=== PATIENT | male | born 1955 | race Caucasian/White ===

== ENCOUNTER 2019-11-17 09:11 | Emergency (ER) | payer OTHER ==
[~2019-11-17] VITALS: Ht 175.3 cm; Wt 74.8 kg
[~2019-11-17 09:11] MED LIST: ALBIPROI INH; ALBU90OI INH; AMOCLA875 PO; AMOX500 PO; BENZ100A PO; Bactrim Ds Tab1 EACH PO; CEPH250A PO; CHLO25 PO; CYCL10 PO; DOXY100 PO; FLUSAL5005 INH; FOLTX TABLET1 EACH PO; IBUP600 PO; NAPR550 PO; Percocet 5-3251 EACH PO; QUET200 PO; QUET300 PO; RXAMOX500 PO; RXLORA1 PO; TRIA80TC TOP; Ultram50 MG PO; Ventolin Soln3 ML INH
[2019-11-17 09:58] LABS: BASOPHILS ABSOLUTE AUTO 0.04 K/mm3 (0.00-0.23); BASOPHILS PERCENT AUTO 1 % (0-2); EOSINOPHILS ABSOLUTE AUTO 0.17 K/mm3 (0.00-0.68); EOSINOPHILS PERCENT AUTO 3 % (0-6); Hemoglobin 15.6 g/dL (13.5-17.5); IMMATURE GRAN PERCENT AUTO 0 % (0-1); LYMPHOCYTES ABSOLUTE AUTO 1.66 K/mm3 (0.84-5.20); LYMPHOCYTES PERCENT AUTO 31 % (21-46); MONOCYTES ABSOLUTE AUTO 0.68 K/mm3 (0.16-1.47); MONOCYTES PERCENT AUTO 13 % (4-13); Mean Corpuscular HGB 29.3 pg (26.0-34.0); Mean Corpuscular HGB Conc 33.9 g/dL (31.5-36.5); Mean Corpuscular Volume 86 fL (80-100); Mean Platelet Volume 8.7 fL (9.1-12.4); NEUTROPHILS ABSOLUTE AUTO 2.88 K/mm3 (1.96-9.15); NEUTROPHILS PERCENT AUTO 53 % (41-73); Platelet Count 290 K/mm3 (150-400); RDW Coefficient Variation 13.4 % (11.7-14.2); RDW Standard Deviation 41.9 fL (35.1-46.3); Red Blood Cell Count 5.33 M/mm3 (4.30-5.90); White Blood Cell Count 5.43 K/mm3 (4.00-11.30)
[2019-11-17 10:15] LABS: Alanine Aminotransfer (ALT/SGP 38 U/L (12-78); Albumin, Blood 3.3 g/dL (3.4-5.0); Albumin/Globulin Ratio 0.7 (0.8-1.8); Alk Phos 134 U/L (50-136); Anion Gap 6 mmol/L (6-16); Aspartate Aminotrans (AST/SGOT 50 U/L (12-37); Bilirubin, Total 0.7 mg/dL (0.1-1.0); Blood Urea Nitrogen 3 mg/dL (8-24); Bun/Creatinine Ratio 6.1 (12.0-20.0); CO2, Blood 30 mmol/L (21-32); Calcium, Blood 9.1 mg/dL (8.5-10.1); Chloride, Blood 89 mmol/L (98-108); Creatinine, Blood 0.49 mg/dL (0.60-1.20); Globulin, Blood 4.8 g/dL (2.2-4.0); Glomerular Filtration Rate >60 (60-); Glucose, Blood 91 mg/dL (70-99); Potassium, Blood 4.5 mmol/L (3.5-5.5); Sodium, Blood 125 mmol/L (136-145); Total Protein, Blood 8.1 g/dL (6.4-8.2)
[2019-11-17] MEDS ORDERED: ALBU90OI INH (14:17)
[2019-11-17] MEDS ORDERED: IBUP600 PO (14:17)
[2019-11-17] MEDS ORDERED: Prednisone20 MG PO (14:17)
[2019-11-17] MEDS ORDERED: Amoxicillin875 MG PO (14:17)
== END 2019-11-17 14:45 | disposition home or self-care (01) ==
LOC: ER 09:11
PROVIDERS: Emergency Medicine
DX: J44.1 Chronic obstructive pulmonary disease with (acute) exacerbation (principal); F17.210 Nicotine dependence, cigarettes, uncomplicated; Z88.5 Allergy status to narcotic agent
CPT/HCPCS: 36415; 71046; 80053; 83880; 85025; 93005; 93010; 94640; 99284-25

== ENCOUNTER 2020-01-24 13:22 | Emergency (ER) | payer OTHER ==
[~2020-01-24] VITALS: Ht 175.3 cm; Wt 63.5 kg
[~2020-01-24 13:22] MED LIST changes: +Amoxicillin875 MG PO; +Prednisone20 MG PO
== END 2020-01-24 15:23 | disposition home or self-care (01) ==
LOC: ER 13:22
DX: S02.2XXA Fracture of nasal bones, initial encounter for closed fracture (principal); Z88.5 Allergy status to narcotic agent; M25.559 Pain in unspecified hip; G89.29 Other chronic pain; J43.9 Emphysema, unspecified; F17.210 Nicotine dependence, cigarettes, uncomplicated; Y04.0XXA Assault by unarmed brawl or fight, initial encounter
CPT/HCPCS: 70160; 99284-25

== ENCOUNTER 2020-02-07 14:29 | Inpatient (IN) | payer OTHER ==
[~2020-02-07] VITALS: Ht 175.3 cm; Wt 70.6 kg
[2020-02-07] MEDS ORDERED: NAPROXEN500 MG PO (14:56)
[2020-02-07] MEDS ORDERED: CYCL10 PO (14:56)
[2020-02-07] MEDS ORDERED: PRED20 PO (14:57)
[2020-02-07] MEDS ORDERED: Ventolin/Prove6.7 GM INH (14:57)
[2020-02-07 15:33] LABS: BASOPHILS ABSOLUTE AUTO 0.04 K/mm3 (0.00-0.23); BASOPHILS PERCENT AUTO 0 % (0-2); EOSINOPHILS ABSOLUTE AUTO 0.01 K/mm3 (0.00-0.68); EOSINOPHILS PERCENT AUTO 0 % (0-6); Hematocrit 39.8 % (37.0-53.0); Hemoglobin 14.1 g/dL (13.5-17.5); IMMATURE GRAN PERCENT AUTO 1 % (0-1); LYMPHOCYTES ABSOLUTE AUTO 0.32 K/mm3 (0.84-5.20); LYMPHOCYTES PERCENT AUTO 2 % (21-46); MONOCYTES ABSOLUTE AUTO 0.48 K/mm3 (0.16-1.47); MONOCYTES PERCENT AUTO 2 % (4-13); Mean Corpuscular HGB Conc 35.4 g/dL (31.5-36.5); Mean Corpuscular Volume 85 fL (80-100); Mean Platelet Volume 7.7 fL (9.1-12.4); NEUTROPHILS ABSOLUTE AUTO 21.06 K/mm3 (1.96-9.15); NEUTROPHILS PERCENT AUTO 96 % (41-73); Platelet Count 317 K/mm3 (150-400); RDW Coefficient Variation 12.6 % (11.7-14.2); RDW Standard Deviation 38.8 fL (35.1-46.3); White Blood Cell Count 22.01 K/mm3 (4.00-11.30)
[2020-02-07 15:54] LABS: Alanine Aminotransfer (ALT/SGP 34 U/L (12-78); Albumin, Blood 3.3 g/dL (3.4-5.0); Albumin/Globulin Ratio 0.8 (0.8-1.8); Alk Phos 144 U/L (50-136); Anion Gap 10 mmol/L (6-16); Aspartate Aminotrans (AST/SGOT 51 U/L (12-37); Bilirubin, Total 0.5 mg/dL (0.1-1.0); Blood Urea Nitrogen 7 mg/dL (8-24); Bun/Creatinine Ratio 12.5 (12.0-20.0); CO2, Blood 25 mmol/L (21-32); Calcium, Blood 8.4 mg/dL (8.5-10.1); Chloride, Blood 81 mmol/L (98-108); Creatinine, Blood 0.56 mg/dL (0.60-1.20); Globulin, Blood 4.2 g/dL (2.2-4.0); Glomerular Filtration Rate >60 (60-); Glucose, Blood 72 mg/dL (70-99); Potassium, Blood 4.2 mmol/L (3.5-5.5); Sodium, Blood 116 mmol/L (136-145); Total Protein, Blood 7.5 g/dL (6.4-8.2)
[2020-02-07 16:01] LABS: Prothrombin Time Results 10.7 Sec (9.7-11.5)
[2020-02-07] MEDS ORDERED: CYCLOBENZAPRINE5 MG PO (16:52)
[2020-02-07 17:57] LABS: PCO2 Arterial 39.1 mmHg (35-45); pH Blood Arterial 7.41 (7.35-7.45)
--- NOTE | 2020-02-07 18:11 | NUR ---
RECEIVED REPORT: ROOM READY, REPORT RECEIVED. AWAITING FOR PT TO RECEIVE SECOND IV AND ARIVE FROM ED.
[2020-02-07 18:43] LABS: Influenza A Negative (NEGATIVE); Influenza B Negative (NEGATIVE)
--- NOTE | 2020-02-07 18:59 | NUR ---
PT ARIVED FROM ED AT 1825 WITH A FEVOR OF 100.6. PT STATES HE IS COLD AND WANTS A BLANKET. ATTEMPTED TO EDUCATE PT ON THE NEED TO KEEP HIS TEMP DOWN AND TO AVOID EXTRA BLANKETS AT THIS TIME. PT COMPLIANT, BUT DOES NOT APPEAR TO BE HAPPY WITH THIS. REVIEWED PT ALLERGIES AND MEDICATIONS. PT STATES HE HAS BEEN HOMELESS LIVING ON THE STREETS. PT APPEARS RED WITH PEELING SKIN IN THE FACE AN ABDOMEN STATES HE SLEPT OUT IN THE SUN. PT STATES HE DRINKS APPROX 2-3 BEERS A DAY. WILL REPORT OFF TO ANKUR LUCAS.
[2020-02-07 20:28] LABS: Anion Gap 9 mmol/L (6-16); Blood Urea Nitrogen 7 mg/dL (8-24); CO2, Blood 24 mmol/L (21-32); Calcium, Blood 7.5 mg/dL (8.5-10.1); Chloride, Blood 87 mmol/L (98-108); Creatinine, Blood 0.59 mg/dL (0.60-1.20); Glomerular Filtration Rate >60 (60-); Glucose, Blood 130 mg/dL (70-99); Potassium, Blood 3.3 mmol/L (3.5-5.5); Sodium, Blood 120 mmol/L (136-145)
[2020-02-07 20:38] LABS: Source, Urine Voided
[2020-02-07 20:44] LABS: Bilirubin, Urine Neg (Neg); Blood, Urine Neg (Neg); Glucose Qualitative, Urine Neg (Neg); Ketones, Urine 2+ (Neg); Leukocyte Esterase, Urine 2+ (Neg); Nitrite, Urine Pos (Neg); Protein, Urine Neg (Neg); Specific Gravity, Urine 1.015 (1.003-1.022); Urobilinogen, Urine NORM (Normal)
[2020-02-07 20:50] LABS: Appearance, Urine Hazy (Clear); Bacteria Many /hpf; Color, Urine Yellow (P-Yellow); Red Blood Cells, Urine Not Seen /hpf (0-2); Squamous Epithelial Cells Not Seen /hpf (Few); White Blood Cells, Urine 25-50 /hpf (0-5)
[2020-02-07 20:55] LABS: U Amphetamine Screen DETECTED; U Methamphetamine Screen DETECTED
[2020-02-07 20:56] LABS: U Barbituate Screen Not Detected; U Benzodiazapine Screen Not Detected; U Buprenorphine Screen Not Detected; U Cannabinoids Screen DETECTED; U Cocaine Screen Not Detected; U Methadone Screen Not Detected; U Opiates Screen Not Detected; U Oxycodone Screen Not Detected; U Phencyclidine Screen Not Detected; U Propoxyphene Screen Not Detected
[2020-02-08 00:46] LABS: Anion Gap 10 mmol/L (6-16); Blood Urea Nitrogen 6 mg/dL (8-24); Bun/Creatinine Ratio 9.9 (12.0-20.0); CO2, Blood 25 mmol/L (21-32); Calcium, Blood 8.1 mg/dL (8.5-10.1); Chloride, Blood 89 mmol/L (98-108); Glomerular Filtration Rate >60 (60-); Glucose, Blood 162 mg/dL (70-99); Magnesium, Blood 1.3 mg/dL (1.6-2.4); Phosphorus, Blood 2.8 mg/dL (2.5-4.9); Potassium, Blood 3.8 mmol/L (3.5-5.5); Sodium, Blood 124 mmol/L (136-145)
[2020-02-08 02:59] LABS: Adenovirus F 40/41 Not Detected (NOT DETECT); Astrovirus Not Detected (NOT DETECT); Campylobacter Sp Not Detected (NOT DETECT); Cryptosporidium Not Detected (NOT DETECT); Cyclospora Cayetanensis Not Detected (NOT DETECT); E. Coli O157 Not Detected (NOT DETECT); Entamoeba Histolytica Not Detected (NOT DETECT); Enteroaggregative E. coli-EAEC Not Detected (NOT DETECT); Enteropathogenic E. coli-EPEC Not Detected (NOT DETECT); Enterotoxigenic E. coli-ETEC Not Detected (NOT DETECT); Giardia Lamblia Not Detected (NOT DETECT); Norovirus GI/GII Not Detected (NOT DETECT); Plesiomonas Shigelloides Not Detected (NOT DETECT); Rotavirus A Not Detected (NOT DETECT); Salmonella Sp Not Detected (NOT DETECT); Sapovirus Not Detected (NOT DETECT); Shiga Toxin-prod E. coli-STEC Not Detected (NOT DETECT); Shigella/Enteroin E. coli-EIEC Not Detected (NOT DETECT); Vibrio Cholerae Not Detected (NOT DETECT); Vibrio Sp Not Detected (NOT DETECT); Yersinia Enterocolitica Not Detected (NOT DETECT)
[2020-02-08 04:43] LABS: Alanine Aminotransfer (ALT/SGP 25 U/L (12-78); Albumin, Blood 2.7 g/dL (3.4-5.0); Albumin/Globulin Ratio 0.7 (0.8-1.8); Alk Phos 103 U/L (50-136); Anion Gap 6 mmol/L (6-16); Aspartate Aminotrans (AST/SGOT 34 U/L (12-37); Bilirubin, Total 0.5 mg/dL (0.1-1.0); Blood Urea Nitrogen 5 mg/dL (8-24); Bun/Creatinine Ratio 10.2 (12.0-20.0); CO2, Blood 24 mmol/L (21-32); Calcium, Blood 8.3 mg/dL (8.5-10.1); Chloride, Blood 93 mmol/L (98-108); Creatinine, Blood 0.49 mg/dL (0.60-1.20); Globulin, Blood 3.8 g/dL (2.2-4.0); Glomerular Filtration Rate >60 (60-); Glucose, Blood 181 mg/dL (70-99); Potassium, Blood 4.2 mmol/L (3.5-5.5); Sodium, Blood 123 mmol/L (136-145); Total Protein, Blood 6.5 g/dL (6.4-8.2)
--- NOTE | 2020-02-08 10:48 | NUR ---
CARE ASSUMED ASSESSMENT COMPLETED, PT ALERT AND ORIENTED, APPROPRIATE AND COOPERATIVE, VSS. DR. SANTOYO IN TO SEE PATIENT, STATUS TO MED WITHOUT TELE, CARDIAC MONIOTORING DC'D. SPO2 94% ON RA, PT HAS A COUGH PRODUCTIVE OF BROWN SPUTUM, IS SUCTIONING INDEPENDENTLY WITH YAUNKER. RECTAL TUBE IN PLACE WITH SMALL AMOUNT OF BROWN LIQUID STOOL IN TUBING, PT VOIDING IN URINAL, APPEARS TO HAVE BEEN INCONTINENT ONCE, GOWN AND LINENS CHANGED, PT CLEANED UP. PT NOW SITTING UP FOR BREAKFAST, DENIES NEEDS OR C/O AT THIS TIME. DENIES CHEST PAIN OR SOB.
--- NOTE | 2020-02-08 12:52 | NUR ---
UPDATE PT HAS BEEN NAPPING ON AND OFF, CONTINUES TO DENY SOB AND PAIN, SPO2 >95% ON RA, COUGH UNCHANGED. PT TOLERATING MEALS WELL, VSS, VOIDING WITHOUT DIFFICULTY. NO ADDITIONAL OUTPUT NOTED FROM RECTAL TUBE SINCE AM ASSESSMENT. PT DENIES NEEDS, IS REPOSITIONING SELF IN BED, REMAINS ORIENTED AND APPROPRIATE, COOPERATIVE WITH CARE.
[2020-02-08 15:16] LABS: Anion Gap 7 mmol/L (6-16); Blood Urea Nitrogen 6 mg/dL (8-24); Bun/Creatinine Ratio 11.1 (12.0-20.0); CO2, Blood 24 mmol/L (21-32); Calcium, Blood 8.2 mg/dL (8.5-10.1); Chloride, Blood 96 mmol/L (98-108); Creatinine, Blood 0.54 mg/dL (0.60-1.20); Glomerular Filtration Rate >60 (60-); Glucose, Blood 177 mg/dL (70-99); Potassium, Blood 4.5 mmol/L (3.5-5.5); Sodium, Blood 127 mmol/L (136-145)
--- NOTE | 2020-02-08 17:38 | NUR ---
UPDATE PT NAPPED ON AND OFF THIS AFTERNOON, DENIED C/O, SOB, OR CHEST PAIN T/O SHIFT, TOLERATED MEALS WELL. BEDBATH AND ORAL CARE COMPLETED, PT ABLE TO ASSIST AND TURN SELF IN BED. PT NOT INCONTINENT OF ANY MORE VOIDS THIS SHIFT, HAS BEEN VOIDING IN URINAL WITHOUT DIFFICULTY, NO BM TODAY. PT CONTINUES TO COUGH AND EXPECTORATE BROWN SPUTUM, SPO2 >95% ON RA. ELECTROLYTES RECHECKED THIS AFTERNOON, SODIUM SLOWLY INCREASING, NO NEW ORDERS, WILL CONTINUE NS 75NL/HR AND RECHECK LABS IN AM. SISTER GIVEN UPDATE.
--- NOTE | 2020-02-08 18:31 | NUR ---
END OF SHIFT PT RESTING IN BED, CONTINUES TO DENY C/O, NO CHANGES SINCE LAST NOTE. PT TOLERATED DINNER WELL, IS NOW WATCHING TV AND EATING PUDDING, REMAINS OREINTED, PLEASANT AND COOPERATIVE. WILL CONTINUE TO MONITOR AND REPORT TO ONCOMING SHIFT.
--- NOTE | 2020-02-09 00:43 | NUR ---
02/08 @ 00:40 SPOKE WITH KELSEA HERMAN REGARDING INCREASING HR, BP AT REST. NO NEW ORDERS RECEIVED AT THIS TIME. CONCERN FOR ABILITITY/COMPLACENCY FOR TAKING PRESCRIPTION MEDICATION ONCE OUT OF THE HOSPITAL CONSIDERING CURRENT HOMELESS STATE, COULD POSSIBLY LIVE AT THIS BP OUTSIDE OF HOSPITAL. DID STATE TO PASS ON TO DAY TEAM. ASYMPTOMATIC, NO C/O PAIN, HEADACHE, CIWA = 0.
[2020-02-09 03:38] LABS: Anion Gap 8 mmol/L (6-16); Blood Urea Nitrogen 5 mg/dL (8-24); Bun/Creatinine Ratio 9.9 (12.0-20.0); CO2, Blood 26 mmol/L (21-32); Calcium, Blood 8.6 mg/dL (8.5-10.1); Chloride, Blood 96 mmol/L (98-108); Glomerular Filtration Rate >60 (60-); Glucose, Blood 166 mg/dL (70-99); Potassium, Blood 3.7 mmol/L (3.5-5.5); Sodium, Blood 130 mmol/L (136-145)
--- NOTE | 2020-02-09 05:54 | NUR ---
SHIFT SUMMARY PATIENT SLEPT WELL THROUGH NIGHT. DID HAVE ONE EPISODE RECENTLY WHERE CIWA WAS 17, FIRST TIME I SCORED HIM WITH TREMORS AND BEING DIRORIENTED. UNSURE OF DATE, WHERE HE WAS AT, BASIC QUESTIONS SUCH "WHAT'S 2 + 2, DOES A STONE FLOAT ON WATER," PATIENT WAS UNABLE TO ANSWER. STARTING TO EXPERIENCE MORE SEVERE WITHDRAWL SYMPTOMS. WELL CONTROLLED CURRENTLY WITH 2MG ATIVAN, SEE EMAR. OTHERWISE, NO CHANGES OVERNIGHT. ASSESSMENT IS CHARTED. NO C/O PAIN. VSS. WILL CONTINUE TO MONITOR.
--- NOTE | 2020-02-09 07:55 | NUR ---
ASSESSMENT- PT ASLEEP, AWAKENS EASILY TO NAME. ALERT, ORIENTED TO SELF, PLACE, DISORIENTED TO TIME. ABLE TO FOLLOW DIRECTIONS. LUNGS CLEAR, NO SOB. VSS. CIWA 6. NO N/V. VOIDING USING URINAL. RECTAL TUBE WITH SMALL AMOUNT LIQUID STOOL. NS AT 75 CDC/HR, PIV X 2 INTACT. MEDICAL STATUS, COVID NEGATIVE. SKIN-FACE REDDENED.
--- NOTE | 2020-02-09 09:04 | NUR ---
DR. SANTOYO HERE-UPDATED. PT UP TO CHAIR WITH ASSIST. EATING BREAKFAST, ENCOURAGED TO EAT SLOWLY. STRONG COUGH. CONTINUE TO MONITOR
--- NOTE | 2020-02-09 11:59 | NUR ---
PT HAS BEEN SLEEPING WITH NO COMPLAINTS. AWAKE NOW, ASSIST TO CHAIR WITH WALKER, TOLERATED WELL. EATING LUNCH. REPORT TO LUPE LUCAS.
--- NOTE | 2020-02-09 12:23 | NUR ---
PT ATE 100% LUNCH. RECTAL TUBE D/C. READIED FOR TRANSFER.
--- NOTE | 2020-02-09 17:30 | NUR ---
SUMMARY PT SITTING UP IN BED EATING DINNER, PT TRANSFERRED UP FROM ICU AFTER LUNCH, PT FORGETFUL BUT COOPERATIVE, ABLE TO TAKE HIS PILLS WHOLE AND USES THE URINAL INDEPENDENTLY, PT IS A ONE PERSON ASSIST WITH THE WALKER, PT WITH SLIGHT TREMORS, MED PER EMAR FOR WITHDRAWL, VSS, NO ACUTE CHANGES, WILL CONT TO MONITOR
--- NOTE | 2020-02-10 00:46 | NUR ---
02/10/20 0010 PT AWAKENED FOR MED. DENIED NEED TO URINATE BUT RN DISCOVERED HE WAS INCONTINENT OF LARGE AMOUNT OF URINE. ENTIRE BED LINENS CHANGED. PARTIAL BATH GIVEN. REQUESTED PUDDING AND SODA AND WAS GIVEN PUDDING AND JUICE. TOOK 100% OF SNACK.
--- NOTE | 2020-02-10 03:14 | NUR ---
02/10/20 0315 PT CALLING FREQUENTLY FOR "SNACKS" AND DRINKS. BOTH ITEMS GIVEN AND RN ENCOURAGED PT TO GET SOME SLEEP IT WAS THE MIDDLE OF THE NIGHT. HE SMILED AND SAID ,"NOT YET".
--- NOTE | 2020-02-10 05:37 | NUR ---
02/10/20 0530 PT SLEEPING WELL AFTER ATIVAN WAS GIVEN FOR CIWA OF 11 AT 0325. HE WAS INCREASINGLY AGITATED,ANXIOUS AND SEEING "A WOMAN TURNING ON MY TV." NO ONE HAD BEEN IN HIS ROOM. VITALS STABLE. BED ALARM ON. TAKING ORAL INTAKE WELL, ESPECIALLY SNACKS.
[2020-02-10 06:42] LABS: BASOPHILS ABSOLUTE AUTO 0.02 K/mm3 (0.00-0.23); BASOPHILS PERCENT AUTO 0 % (0-2); EOSINOPHILS ABSOLUTE AUTO 0.01 K/mm3 (0.00-0.68); EOSINOPHILS PERCENT AUTO 0 % (0-6); Hematocrit 33.4 % (37.0-53.0); Hemoglobin 11.3 g/dL (13.5-17.5); IMMATURE GRAN ABSOLUTE AUTO 0.12 K/mm3 (0.00-0.10); IMMATURE GRAN PERCENT AUTO 1 % (0-1); LYMPHOCYTES ABSOLUTE AUTO 1.13 K/mm3 (0.84-5.20); LYMPHOCYTES PERCENT AUTO 5 % (21-46); MONOCYTES PERCENT AUTO 4 % (4-13); Mean Corpuscular HGB 29.6 pg (26.0-34.0); Mean Corpuscular HGB Conc 33.8 g/dL (31.5-36.5); Mean Corpuscular Volume 87 fL (80-100); NEUTROPHILS ABSOLUTE AUTO 20.31 K/mm3 (1.96-9.15); NEUTROPHILS PERCENT AUTO 90 % (41-73); Platelet Count 293 K/mm3 (150-400); RDW Coefficient Variation 13.6 % (11.7-14.2); RDW Standard Deviation 43.7 fL (35.1-46.3); Red Blood Cell Count 3.82 M/mm3 (4.30-5.90); White Blood Cell Count 22.49 K/mm3 (4.00-11.30)
[2020-02-10 08:51] LABS: Anion Gap 4 mmol/L (6-16); Blood Urea Nitrogen 7 mg/dL (8-24); Bun/Creatinine Ratio 12.7 (12.0-20.0); CO2, Blood 32 mmol/L (21-32); Calcium, Blood 8.8 mg/dL (8.5-10.1); Chloride, Blood 95 mmol/L (98-108); Creatinine, Blood 0.55 mg/dL (0.60-1.20); Glomerular Filtration Rate >60 (60-); Glucose, Blood 104 mg/dL (70-99); Potassium, Blood 3.6 mmol/L (3.5-5.5); Sodium, Blood 131 mmol/L (136-145)
--- NOTE | 2020-02-10 17:20 | NUR ---
PT IS A/OX2, PLEASANT AND COOPERATIVE, THE PT TODAY MOSTLY SLEPT, REPORTED THAT HE DID NOT SLEEP WELL LAST NIGHT AT ALL, THE PT HAD 2 LARGE SOFT BMS TODAY AND WAS SHOWERED AFTER, THE PT IS 1 PERSON ASSIST UP USEING THE FWW, STILL REMAINS UNSTEADY ON HIS FEET, THE PT APPEARS TO BE BREATHING EASILY ON RA, THE PT DENIED ANY PAIN TODAY, CALL LIGHT IN REACH, BED ALARM ON, WILL CONTINUE TO MONITOR AND ASSESS FOR CAHANGES
[2020-02-11 05:00] LABS: Anion Gap 2 mmol/L (6-16); Blood Urea Nitrogen 8 mg/dL (8-24); Bun/Creatinine Ratio 12.9 (12.0-20.0); CO2, Blood 34 mmol/L (21-32); Calcium, Blood 8.4 mg/dL (8.5-10.1); Chloride, Blood 96 mmol/L (98-108); Creatinine, Blood 0.62 mg/dL (0.60-1.20); Glomerular Filtration Rate >60 (60-); Glucose, Blood 76 mg/dL (70-99); Potassium, Blood 3.7 mmol/L (3.5-5.5); Sodium, Blood 132 mmol/L (136-145)
--- NOTE | 2020-02-11 05:28 | NUR ---
SHIFT SUMMARY PT HAS RESTED WELL MOST OF THE NIGHT. OCCASIONAL INCONTINENT EPISODES WHILE TRYING TO GET TO THE BATHROOM. HE HAS HAD A FEW LOOSE STOOLS THIS SHIFT. PT IS FORGETFUL, AND SLOW TO RESPOND AT TIMES. DOES NOT USE CALL, AND JUST YELLS OUT WHEN NEEDING STAFFS ASSISTANCE. HOWEVER PT OVERALL HAS BEEN APPROPRIATE WITH STAFF. CIWAS SCORES HAVE BEEN LOW. VITALS STABLE. IVF INFSUING ORDERED. NO ACUTE CHANGES TO REPORT. BED IN LOWEST POSITION, CALL LIGHT WITHIN REACH. WILL CONTINUE TO MONITOR AND REPORT TO ONCOMING RN.
[2020-02-11] MEDS ORDERED: AZIT250 PO (11:10)
[2020-02-11] MEDS ORDERED: LISI20 PO (11:11)
--- NOTE | 2020-02-11 12:40 | NUR ---
PT DISCHARGED PT VERBALIZED UNDERSTANDING OF THE DC INSTRUCTIONS, THE PTS PRESCRIPTIONS WERE FAXED TO JOSEFA SAUER HE REQUESTED, THE PTS PCP OFFICE WAS NOTIFIED FOR FOLLOW UP APPOINTMENT THE WILL CALL THE PT TO SCHEDULE, THE PT APPEARED TO BE BREATHING EASILY ON RA, THE PT WAS TRANSFERED VIA WHEELCHAIR ACCOMPANIED BY THE THREE DIMENSIONAL ART INSTRUCTOR
== END 2020-02-11 12:15 | disposition home or self-care (01) | DRG 871 ==
LOC: ER 14:29 → ICUW 18:03 → ICUE 18:15 → MEDS 02-09 12:24 → ENPENDDIS 02-11 10:16 → MEDS 02-11 12:15
PROVIDERS: Emergency Medicine; Nurse Practitioner Acute Care; ADMIT Hospitalist
DX: A41.9 Sepsis, unspecified organism (principal); J96.01 Acute respiratory failure with hypoxia; J69.0 Pneumonitis due to inhalation of food and vomit; J44.0 Chronic obstructive pulmonary disease with (acute) lower respiratory infection; J44.1 Chronic obstructive pulmonary disease with (acute) exacerbation; E87.1 Hypo-osmolality and hyponatremia; F10.239 Alcohol dependence with withdrawal, unspecified; R65.20 Severe sepsis without septic shock; F03.90 Unspecified dementia, unspecified severity, without behavioral disturbance, psychotic disturbance, mood disturbance, and anxiety; Z59.0 Homelessness; I10 Essential (primary) hypertension; F17.210 Nicotine dependence, cigarettes, uncomplicated
CPT/HCPCS: 0097U; 36415; 36600; 71045; 80048; 80053; 81001; 82728; 82803; 83605; 83615; 83735; 83930; 83935; 84100; 84145; 84300; 85025; 85379; 85610; 85730; 87040; 87070; 87077; 87086; 87186; 87205; 87804; 93005; 93010; 96361; 96365; 96367; 99285-25; A9270; C9113; G0480; J0456; J0696; J1650; J2060; J2930; J3475; J3480; J7030; J7050; U0002

== ENCOUNTER 2020-03-05 08:56 | Emergency (ER) | payer OTHER ==
[~2020-03-05] VITALS: Ht 175.3 cm; Wt 74.8 kg
[~2020-03-05 08:56] MED LIST changes: +AZIT250 PO; +CYCLOBENZAPRINE5 MG PO; +LISI20 PO; +NAPROXEN500 MG PO; +PRED20 PO; +Ventolin/Prove6.7 GM INH
== END 2020-03-05 11:42 | disposition home or self-care (01) ==
LOC: ER 08:56
DX: H72.92 Unspecified perforation of tympanic membrane, left ear (principal); R05 Cough; J44.9 Chronic obstructive pulmonary disease, unspecified; D50.9 Iron deficiency anemia, unspecified; F17.210 Nicotine dependence, cigarettes, uncomplicated; Z88.5 Allergy status to narcotic agent; Z59.0 Homelessness; Z79.899 Other long term (current) drug therapy; Z79.51 Long term (current) use of inhaled steroids
CPT/HCPCS: 71045; 99283-25

== ENCOUNTER 2020-03-25 07:49 | Inpatient (IN) | payer OTHER ==
[~2020-03-25] VITALS: Ht 175.3 cm; Wt 70.7 kg
[2020-03-25 08:20] LABS: BASOPHILS ABSOLUTE AUTO 0.03 K/mm3 (0.00-0.23); BASOPHILS PERCENT AUTO 0 % (0-2); EOSINOPHILS ABSOLUTE AUTO 0.01 K/mm3 (0.00-0.68); EOSINOPHILS PERCENT AUTO 0 % (0-6); Hematocrit 42.6 % (37.0-53.0); Hemoglobin 14.8 g/dL (13.5-17.5); IMMATURE GRAN ABSOLUTE AUTO 0.07 K/mm3 (0.00-0.10); IMMATURE GRAN PERCENT AUTO 0 % (0-1); LYMPHOCYTES ABSOLUTE AUTO 0.72 K/mm3 (0.84-5.20); LYMPHOCYTES PERCENT AUTO 4 % (21-46); MONOCYTES ABSOLUTE AUTO 1.06 K/mm3 (0.16-1.47); MONOCYTES PERCENT AUTO 6 % (4-13); Mean Corpuscular HGB 30.8 pg (26.0-34.0); Mean Corpuscular HGB Conc 34.7 g/dL (31.5-36.5); Mean Corpuscular Volume 89 fL (80-100); NEUTROPHILS PERCENT AUTO 89 % (41-73); Platelet Count 325 K/mm3 (150-400); RDW Standard Deviation 45.1 fL (35.1-46.3); Red Blood Cell Count 4.81 M/mm3 (4.30-5.90); White Blood Cell Count 17.19 K/mm3 (4.00-11.30)
[2020-03-25 08:59] LABS: Alanine Aminotransfer (ALT/SGP 18 U/L (12-78); Albumin, Blood 3.2 g/dL (3.4-5.0); Albumin/Globulin Ratio 0.8 (0.8-1.8); Alk Phos 136 U/L (50-136); Anion Gap 7 mmol/L (6-16); Aspartate Aminotrans (AST/SGOT 23 U/L (12-37); Bilirubin, Total 0.9 mg/dL (0.1-1.0); Blood Urea Nitrogen 5 mg/dL (8-24); Bun/Creatinine Ratio 8.8 (12.0-20.0); CO2, Blood 27 mmol/L (21-32); Calcium, Blood 8.5 mg/dL (8.5-10.1); Chloride, Blood 87 mmol/L (98-108); Creatinine, Blood 0.57 mg/dL (0.60-1.20); Globulin, Blood 4.2 g/dL (2.2-4.0); Glomerular Filtration Rate >60 (60-); Glucose, Blood 115 mg/dL (70-99); Potassium, Blood 4.4 mmol/L (3.5-5.5); Sodium, Blood 121 mmol/L (136-145); Total Protein, Blood 7.4 g/dL (6.4-8.2); Troponin I 0.058 ng/mL (0.000-0.040)
--- NOTE | 2020-03-25 10:41 | NUR ---
REC'D REPORT FROM SHAYY ROGERS WHOM WILL TRANSFER PT TO ICU-3 WHEN ABLE.
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
[2020-03-25 11:10] LABS: International Normalized Ratio 0.96; Prothrombin Time Results 10.3 Sec (9.7-11.5)
--- NOTE | 2020-03-25 13:00 | NUR ---
SKIN ASSESSMENT: PT HAS SEVERAL PATCHY, ERYTHEMATOUS PAPULES SCATTERED ACROSS RT/LT CHEST WALL, AND PARTLY DOWN POSTERIOR SHOULDERS. ASKED PT IF HE HAD ANY PRIOR HX OF SKIN CONDITONS. 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 SKIN AREAS THAT ARE COMMONLY AFFECTED BY SCABIES, CHECKED AND CLEAR OF SKIN CONCERNS. PT ALSO REPORTS HE HAS DEALT WITH "DRY SKIN" IN THE PAST THAT HE USED "MOISTURIZING CREAM HELPED." ALSO REPORTS THAT HE HAS HAD "DRY SKIN" IN AREAS THAT ARE COMMON TO SEE DERMATITIS/ECZEMA AT.
[2020-03-25 14:34] LABS: Anion Gap 6 mmol/L (6-16); Blood Urea Nitrogen 8 mg/dL (8-24); Bun/Creatinine Ratio 12.5 (12.0-20.0); CO2, Blood 25 mmol/L (21-32); Calcium, Blood 7.6 mg/dL (8.5-10.1); Chloride, Blood 93 mmol/L (98-108); Creatinine, Blood 0.64 mg/dL (0.60-1.20); Glomerular Filtration Rate >60 (60-); Glucose, Blood 109 mg/dL (70-99); Potassium, Blood 4.3 mmol/L (3.5-5.5); Sodium, Blood 124 mmol/L (136-145)
--- NOTE | 2020-03-25 15:14 | NUR ---
CALLED DR DUFFY RE: TROPONIN WNL. HEPARIN GTT STOPPED. PT STARTED ON ENOXAPARIN. DISCUSSED WITH PHARMACY WHEN IS APPROPRIATELY TO START ENOXAPARIN FOR DVT PROPYLAXIS AFTER D/C'ING HEPARIN. PHARMACY TO ADJUST. PT HAD 2 EPISODE OF LG/LOOSE/ORANGISH BM PER BEDPAN. SENT FOR GI PANEL.
--- NOTE | 2020-03-25 16:08 | NUR ---
SHIFT SUMMARY: PT IS ALERT AND ORIENTED X3. SLOWLY BUT APPROPRIATLEY ANSWERS QUESTIONS. PT ABLE TO MOVE SELF IN BED. NO C/O PAIN/CHEST PAIN. HEPARIN GTT STOPPED AFTER DISCUSSING TROPONIN WNL'S. LUNGS CLEAR, BUT DIMINISHED IN THE BILATERAL BASES, RT MORE DIMINISHED THAN LT. PT VERY DYSPNEIC WITH MINIMAL EXERTION, HOWEVER, SP02 SAT REMAIN >90% ON RA. AND PT RECOVERS QUICKLY FROM EXERTION. HR REGULAR ST-LOW 100'S RANGE. ABD SOFT/ROUND/NON-TENDER. BT'S ACTIVE X4 QUADS. STOOL SENT TO LAB FOR GI PANEL, PT HAS NEW DIARRHEA.
[2020-03-25 17:47] LABS: Campylobacter Sp Not Detected (NOT DETECT)
[2020-03-25 17:48] LABS: Adenovirus F 40/41 Not Detected (NOT DETECT); Astrovirus Not Detected (NOT DETECT); Cryptosporidium Not Detected (NOT DETECT); Cyclospora Cayetanensis Not Detected (NOT DETECT); E. Coli O157 Not Detected (NOT DETECT); Entamoeba Histolytica Not Detected (NOT DETECT); Enteroaggregative E. coli-EAEC Not Detected (NOT DETECT); Enteropathogenic E. coli-EPEC Not Detected (NOT DETECT); Enterotoxigenic E. coli-ETEC Not Detected (NOT DETECT); Giardia Lamblia Not Detected (NOT DETECT); Norovirus GI/GII Not Detected (NOT DETECT); Plesiomonas Shigelloides Not Detected (NOT DETECT); Rotavirus A Not Detected (NOT DETECT); Salmonella Sp Not Detected (NOT DETECT); Sapovirus Not Detected (NOT DETECT); Shiga Toxin-prod E. coli-STEC Not Detected (NOT DETECT); Shigella/Enteroin E. coli-EIEC Not Detected (NOT DETECT); Vibrio Cholerae Not Detected (NOT DETECT); Vibrio Sp Not Detected (NOT DETECT); Yersinia Enterocolitica Not Detected (NOT DETECT)
--- NOTE | 2020-03-25 19:30 | NUR ---
REPORTED OFF TO SHAYY EATON WHOM IS NOW ASSUMING CARE OF THIS PT.
--- NOTE | 2020-03-25 20:44 | NUR ---
PT RESTING IN BED. ABLE TO MOVE SELF AROUND IN BED. BLE A LITTLE WEAK. PT USES CALL LIGHT APPROPRIATELY. URINAL AT BEDSIDE AND USES INDEP. SEE ASSESSMENT. NO SIGN OF DISTRESS.
--- NOTE | 2020-03-25 21:25 | NUR ---
PT STATES HE IS HAVING DIFFICULTY BREATHING. SPO2 95% ON RA. LS DIM IN BASES. SPOKE WITH LYNDA ENAMORADO IN PERSON WHO WENT IN TO EVALUATE PT. PT ON NS AT 75ML/HR BUT HIS SODIUM HAS BEEN LOW. BNP WAS 992 THIS AM AND WAS DISCUSSED WELL. RT IN TO DO NEB PER LYNDA TIE HACKER REQUEST.
--- NOTE | 2020-03-25 22:13 | NUR ---
PT FEELING BETTER AFTER BREATHING TX. NO SIGN OF DISTRESS.
[2020-03-26 04:59] LABS: BASOPHILS ABSOLUTE AUTO 0.02 K/mm3 (0.00-0.23); BASOPHILS PERCENT AUTO 0 % (0-2); EOSINOPHILS ABSOLUTE AUTO 0.03 K/mm3 (0.00-0.68); EOSINOPHILS PERCENT AUTO 0 % (0-6); Hematocrit 35.4 % (37.0-53.0); Hemoglobin 12.2 g/dL (13.5-17.5); IMMATURE GRAN ABSOLUTE AUTO 0.05 K/mm3 (0.00-0.10); IMMATURE GRAN PERCENT AUTO 0 % (0-1); LYMPHOCYTES ABSOLUTE AUTO 0.97 K/mm3 (0.84-5.20); LYMPHOCYTES PERCENT AUTO 8 % (21-46); MONOCYTES ABSOLUTE AUTO 1.06 K/mm3 (0.16-1.47); MONOCYTES PERCENT AUTO 9 % (4-13); Mean Corpuscular HGB 30.5 pg (26.0-34.0); Mean Corpuscular HGB Conc 34.5 g/dL (31.5-36.5); Mean Corpuscular Volume 89 fL (80-100); Mean Platelet Volume 8.5 fL (9.1-12.4); NEUTROPHILS ABSOLUTE AUTO 9.79 K/mm3 (1.96-9.15); NEUTROPHILS PERCENT AUTO 82 % (41-73); Platelet Count 291 K/mm3 (150-400); RDW Coefficient Variation 14.1 % (11.7-14.2); White Blood Cell Count 11.92 K/mm3 (4.00-11.30)
[2020-03-26 05:21] LABS: Anion Gap 7 mmol/L (6-16); Blood Urea Nitrogen 8 mg/dL (8-24); Bun/Creatinine Ratio 14.2 (12.0-20.0); CO2, Blood 25 mmol/L (21-32); Calcium, Blood 7.8 mg/dL (8.5-10.1); Chloride, Blood 94 mmol/L (98-108); Creatinine, Blood 0.56 mg/dL (0.60-1.20); Glomerular Filtration Rate >60 (60-); Glucose, Blood 94 mg/dL (70-99); Magnesium, Blood 1.6 mg/dL (1.6-2.4); Phosphorus, Blood 3.2 mg/dL (2.5-4.9); Potassium, Blood 3.9 mmol/L (3.5-5.5); Sodium, Blood 126 mmol/L (136-145)
--- NOTE | 2020-03-26 06:17 | NUR ---
SUMMARY PT RESTING IN BED. GETS SOB AT TIMES AND WILL REQUEST BREATHING TX. ONLY DESATTED ONCE TO 84% AFTER A COUGHING SPELL. PLACED O2 ON BRIEFLY UNTIL RECOVERED. RECOVERS QUICKLY. PT HAS MOIST PRODUCTIVE COUGH. HAVE NOT SEEN SPUTUM DUE TO PT SWALLOWING IT. ONE BOUT OF DIARRHEA. NO OTHER CHANGES DURING THE NIGHT.
--- NOTE | 2020-03-26 09:44 | NUR ---
TRANSFER OF CARE REPORT GIVEN TO SHAYY MENDOZA ON MEDICAL FLOOR. PT AWARE OF TRANSFER. BELONGINGS GATHERED AND TRANSFERRED WITH PT. VITALS HAVE REMAINED STABLE. PT TRANSFERRED TO ROOM 358 VIA BED, ESCORTED BY [facility].
--- NOTE | 2020-03-26 10:40 | NUR ---
newly arrived from icu, tucked in by cn and aid, a+o, bed bound, will assess and treat as appropriate
--- NOTE | 2020-03-26 19:32 | NUR ---
alert at baseline, call light in reach, bt set up schedule to reduce stress, 2L via nc, saline locked, confused at time and anxious, bsr shared with nurse and pt
--- NOTE | 2020-03-27 04:45 | NUR ---
SHIFT SUMMARY NO ACUTE CHANGES THIS SHIFT, PT ANXIOUS @ SHIFT START, CALLING OUT INTO [place]EV[place] AND CONTINUING TO PULL OFF O2. RT ADMINISTERED BR TX WHICH PT ONLY TOLERATED ABOUT HALF, STATING "I NEED AIR", AFTER PROVIDING PT W/A FAN HE SEEMED MORE RELAXED AND SLEPT T/O THE NIGHT, PT SLEEPING AT THIS TIME, CALL LIGHT IN REACH, WILL CONT TO MONITOR UTNIL REPORT GIVEN TO DAY RN.
--- NOTE | 2020-03-27 18:19 | NUR ---
SHIFT SUMMARY PT AXO, COOPERATIVE THOUGH ANXIOUS AT TIMES. CIWA THIS SHIFT 1-3. PT HAD COUGHING EPISODES THIS MORNING AND WAS DEMANDING BREATHING TREATMENTS, RT NOTIFIED AND IN ROOM. DR DUFFY NOTIFIED OF HARSH, HACKING COUGH, NEW ORDERS IN PLACE FOR COUGH MEDICINE. PT'S SISTER CORRY CALLED FOR UPDATE. THIS NURSE, WITH PT PERMISSION DICUSSED CARE AND UPDATED HER. PT'S SISTER CONCERNED ABOUT PT LIVING "ON THE STREETS." PT/OT ORDERED. AWAITING EVAL AT THIS TIME. BED IN LOW POSITION, CALL LIGHT WITHIN REACH.
--- NOTE | 2020-03-27 22:32 | NUR ---
Patient very anxious. Yelling out for help for everything from adjusting TV, room temp and mostly breathing. He gets extremely panicked and accelerates his rate of breathing. When this happens, it is very difficult to calm and comfort the patient. His CIWA scale is only running at 4, even with his anxiety. Call to be placed to hospitalist to request anti-anxiety medication.
--- NOTE | 2020-03-28 02:11 | NUR ---
Patient much more comfortable after receiving 2 divided doses of 0.5mg Ativan for his severe anxiety. No change in 02 saturations or requirements after med. will continue close monitoring
[2020-03-28 04:46] LABS: Hematocrit 34.2 % (37.0-53.0); Hemoglobin 11.4 g/dL (13.5-17.5); Mean Corpuscular HGB 29.7 pg (26.0-34.0); Mean Corpuscular HGB Conc 33.3 g/dL (31.5-36.5); Mean Corpuscular Volume 89 fL (80-100); Mean Platelet Volume 8.3 fL (9.1-12.4); Platelet Count 318 K/mm3 (150-400); RDW Standard Deviation 45.5 fL (35.1-46.3); Red Blood Cell Count 3.84 M/mm3 (4.30-5.90); White Blood Cell Count 9.06 K/mm3 (4.00-11.30)
--- NOTE | 2020-03-28 04:48 | NUR ---
FOOD SERVICE AGENT SUMMARY Patient very anxious in the evening. Would pull off 02, start coughing a very harsh, raspy cough, then yelling for help. Breathing tx given at every avail. interval, and order for ativan rec'd and given which helped tremendously with patient not pulling at 02, and not panicking. patient slept fairly well after 2400.
[2020-03-28 05:04] LABS: Anion Gap 6 mmol/L (6-16); Blood Urea Nitrogen 7 mg/dL (8-24); Bun/Creatinine Ratio 13.3 (12.0-20.0); CO2, Blood 27 mmol/L (21-32); Calcium, Blood 8.1 mg/dL (8.5-10.1); Chloride, Blood 88 mmol/L (98-108); Creatinine, Blood 0.53 mg/dL (0.60-1.20); Glomerular Filtration Rate >60 (60-); Glucose, Blood 112 mg/dL (70-99); Potassium, Blood 4.2 mmol/L (3.5-5.5); Sodium, Blood 121 mmol/L (136-145)
--- NOTE | 2020-03-28 18:25 | NUR ---
SHIFT SUMMARY PT A&OX4. PT IS SBA TO CHAIR. PT DOES NOT CALL WHEN MOVING FROM CHAIR TO BED. PT DENIES ANY PAIN & N/V. PATIENT HAS A CORSE COUGH. WHEN COUGHING PT BECOMES ANXIOUS. HE REQUESTED 2 BREATHING TREATMENTS DURING SHIFT. PT REMAINS ON 2L OF OXYGEN. PT EXPERIENCES SOB WHEN MOVING AND COUGHING. PT PLACED ON FLUID RESTRICTION. PT ON TELLE SINUS RHYTHM 92 W/ PAC.
--- NOTE | 2020-03-29 04:59 | NUR ---
SHIFT SUMMARY PT HAS NO ACUTE CHANGES THIS SHIFT, MEDICATED 1X FOR COUGH THEN PT SLEPT T/O THE NIGHT ONLY OCCASIONALLY COUGHING & WOKE 1X TO REQ RT, PT A&O BUT DOES NOT USE CALL LIGHT- CALLS INTO THE HALLWAY TO MAKE NEEDS KNOWN, PT SLEEPING AT THIS TIME, BED ALARM ACTIVE, WILL CONT TO MONITOR UNTIL REPORT GIVEN TO DAY RN.
[2020-03-29 05:35] LABS: Anion Gap 4 mmol/L (6-16); Blood Urea Nitrogen 6 mg/dL (8-24); Bun/Creatinine Ratio 11.6 (12.0-20.0); CO2, Blood 29 mmol/L (21-32); Chloride, Blood 90 mmol/L (98-108); Creatinine, Blood 0.52 mg/dL (0.60-1.20); Glomerular Filtration Rate >60 (60-); Glucose, Blood 99 mg/dL (70-99); Sodium, Blood 123 mmol/L (136-145)
--- NOTE | 2020-03-29 18:36 | NUR ---
SHIFT SUMMARY PT IS A&OX3, DIFICULTY RECALLING YEAR. DENIES N/V/PAIN. PT HAS HARSH COUGH THAT CAN BECOME PRODUCTIVE IF HE COUGHS HARD ENOUGH AND CAN BECOME SOB. PT IS NOW ON RM PT TOOK A SHOWER, WAS IN CHAIR FOR DINNER, AND WALKED STEVENS WITH PT/OT WITH WALKER PT ASKED FOR HELP FROM TELEPHONE LINES REPAIRER TO RETAIN THE NEEDED INFORMATION TO HELP HIM NOT BECOME HOMELESS AGAIN. PT STATED HE IS "TO OLD TO BE ON THE STREETS" BELIEVES THAT IS HOW HE GOT SICK IN THE FIRST PLACE. NO NEW CHANGES OR CONCERS
--- NOTE | 2020-03-30 05:34 | NUR ---
SHIFT SUMMARY PT HAS HAD NO ACUTE CHANGES THIS SHIFT, MEDICATED 1X FOR COUGH W/PM MEDS, HAD A FEW HARSH COUGHING SPELLS DURING THE NIGHT BUT SLEPT T/O MOST, PT SLEEPING AT THIS TIME, CALL LIGHT IN REACH, WILL CONT TO MONITOR UNTIL REPORT GIVEN TO DAY RN.
[2020-03-30 05:45] LABS: Anion Gap 8 mmol/L (6-16); Blood Urea Nitrogen 10 mg/dL (8-24); Bun/Creatinine Ratio 16.5 (12.0-20.0); CO2, Blood 28 mmol/L (21-32); Calcium, Blood 8.1 mg/dL (8.5-10.1); Chloride, Blood 88 mmol/L (98-108); Creatinine, Blood 0.61 mg/dL (0.60-1.20); Glomerular Filtration Rate >60 (60-); Glucose, Blood 86 mg/dL (70-99); Potassium, Blood 4.4 mmol/L (3.5-5.5); Sodium, Blood 124 mmol/L (136-145)
--- NOTE | 2020-03-30 15:30 | NUR ---
PATIENT DISCHARGED TO HOME. IV SALINE LOCK REMOVED WITHOUT INCIDENT. PT ABLE TO DRESS SELF. THIS AUTHOR CALLED DR. LÓPEZ'S OFFICE TO MAKE F/U APPOINTMENT, BUT THEY NEED TO SEND REQUEST TO THEIR AUTO DAMAGE INSURANCE APPRAISER BEFORE APPT CAN BE MADE. THEY WILL CALL HIM AT [facility] (WHERE PT STATED HE WAS GOING) TO MAKE APPOINTMENT; PT VERBALIZED UNDERSTANDING OF THIS INFORMATION. HE WAS TAKEN DOWNSTAIRS VIA W/C; CAB WAS ARRANGED TO PICK HIM UP.
== END 2020-03-30 15:19 | disposition home or self-care (01) | DRG 194 ==
LOC: ER 07:49 → PCU 10:17 → ICUE 10:57 → MEDS 03-26 09:53
PROVIDERS: Emergency Medicine; ADMIT Internal Medicine
DX: J18.9 Pneumonia, unspecified organism (principal); J44.0 Chronic obstructive pulmonary disease with (acute) lower respiratory infection; E22.2 Syndrome of inappropriate secretion of antidiuretic hormone; F10.239 Alcohol dependence with withdrawal, unspecified; F03.91 Unspecified dementia, unspecified severity, with behavioral disturbance; I10 Essential (primary) hypertension; R79.89 Other specified abnormal findings of blood chemistry; F17.210 Nicotine dependence, cigarettes, uncomplicated; Z59.0 Homelessness
CPT/HCPCS: 0097U; 36415; 71045; 80048; 80053; 83605; 83735; 83880; 83935; 84100; 84145; 84300; 84443; 84484; 85025; 85027; 85610; 85730; 87040; 93005; 93010; 93306; 94640; 94760; 96365; 96366; 96368; 97112; 97162; 97165; 97530; 99285-25; A9270-GY; J0456; J0696; J1644; J1650; J2060; J7030; J7050; U0002

== ENCOUNTER 2020-09-04 10:06 | Emergency (ER) | payer MEDICARE, OTHER ==
[~2020-09-04] VITALS: Ht 175.3 cm; Wt 74.8 kg
[2020-09-04] MEDS ORDERED: ALBU90OI INH (11:38)
== END 2020-09-04 11:43 | disposition home or self-care (01) ==
LOC: ER 10:06
DX: J44.9 Chronic obstructive pulmonary disease, unspecified (principal); F17.210 Nicotine dependence, cigarettes, uncomplicated; Z88.5 Allergy status to narcotic agent; Z79.899 Other long term (current) drug therapy; Z59.0 Homelessness
CPT/HCPCS: 99285

== ENCOUNTER 2020-09-23 17:14 | Emergency (ER) | payer OTHER, MEDICARE ==
[~2020-09-23] VITALS: Ht 175.3 cm; Wt 74.8 kg
[2020-09-23 17:47] LABS: BASOPHILS ABSOLUTE AUTO 0.04 K/mm3 (0.00-0.23); BASOPHILS PERCENT AUTO 0 % (0-2); EOSINOPHILS ABSOLUTE AUTO 0.03 K/mm3 (0.00-0.68); EOSINOPHILS PERCENT AUTO 0 % (0-6); Hemoglobin 15.3 g/dL (13.5-17.5); IMMATURE GRAN ABSOLUTE AUTO 0.05 K/mm3 (0.00-0.10); IMMATURE GRAN PERCENT AUTO 1 % (0-1); LYMPHOCYTES ABSOLUTE AUTO 0.82 K/mm3 (0.84-5.20); LYMPHOCYTES PERCENT AUTO 8 % (21-46); MONOCYTES ABSOLUTE AUTO 0.83 K/mm3 (0.16-1.47); MONOCYTES PERCENT AUTO 8 % (4-13); Mean Corpuscular HGB 30.9 pg (26.0-34.0); Mean Corpuscular HGB Conc 34.8 g/dL (31.5-36.5); Mean Corpuscular Volume 89 fL (80-100); Mean Platelet Volume 8.2 fL (9.1-12.4); NEUTROPHILS ABSOLUTE AUTO 8.97 K/mm3 (1.96-9.15); NEUTROPHILS PERCENT AUTO 84 % (41-73); Platelet Count 300 K/mm3 (150-400); RDW Coefficient Variation 11.8 % (11.7-14.2); RDW Standard Deviation 38.5 fL (35.1-46.3); Red Blood Cell Count 4.95 M/mm3 (4.30-5.90); White Blood Cell Count 10.74 K/mm3 (4.00-11.30)
[2020-09-23 17:59] LABS: International Normalized Ratio 0.92; Prothrombin Time Results 9.9 Sec (9.7-11.5)
[2020-09-23 18:08] LABS: Alanine Aminotransfer (ALT/SGP 45 U/L (12-78); Albumin, Blood 3.7 g/dL (3.4-5.0); Albumin/Globulin Ratio 0.8 (0.8-1.8); Alk Phos 133 U/L (50-136); Anion Gap 10 mmol/L (6-16); Aspartate Aminotrans (AST/SGOT 71 U/L (12-37); Bilirubin, Total 0.8 mg/dL (0.1-1.0); Blood Urea Nitrogen 8 mg/dL (8-24); Bun/Creatinine Ratio 13.6 (12.0-20.0); CO2, Blood 24 mmol/L (21-32); Calcium, Blood 9.6 mg/dL (8.5-10.1); Chloride, Blood 86 mmol/L (98-108); Creatinine, Blood 0.59 mg/dL (0.60-1.20); Ethanol (Alcohol), Blood, Med 5 mg/dL; Globulin, Blood 4.5 g/dL (2.2-4.0); Glomerular Filtration Rate >60 (60-); Glucose, Blood 115 mg/dL (70-99); Potassium, Blood 4.4 mmol/L (3.5-5.5); Sodium, Blood 120 mmol/L (136-145); Total Protein, Blood 8.2 g/dL (6.4-8.2)
== END 2020-09-23 20:21 | disposition short-term general hospital (02) ==
LOC: ER 17:14
PROVIDERS: Emergency Medicine
DX: S32.402A Unspecified fracture of left acetabulum, initial encounter for closed fracture (principal); S01.81XA Laceration without foreign body of other part of head, initial encounter; E87.1 Hypo-osmolality and hyponatremia; J44.9 Chronic obstructive pulmonary disease, unspecified; F17.210 Nicotine dependence, cigarettes, uncomplicated; Z88.5 Allergy status to narcotic agent; Z79.899 Other long term (current) drug therapy; V47.6XXA Car passenger injured in collision with fixed or stationary object in traffic accident, initial encounter; Y92.411 Interstate highway as the place of occurrence of the external cause
CPT/HCPCS: 36415; 70450; 71045; 71260; 72125; 72170; 73551; 74177; 80053; 83690; 85025; 85610; 96374-59; 96375-59; 96376-59; 99285-25; G0480; J1170; J3010; Q9967

== ENCOUNTER 2020-10-25 21:21 | Emergency (ER) | payer OTHER, MEDICARE ==
[~2020-10-25] VITALS: Ht 175.3 cm; Wt 74.8 kg
== END 2020-10-25 22:45 | disposition home or self-care (01) ==
LOC: ER 21:21
DX: M79.642 Pain in left hand (principal); Z88.5 Allergy status to narcotic agent; F17.210 Nicotine dependence, cigarettes, uncomplicated
CPT/HCPCS: 73502; 99284-25

== ENCOUNTER 2020-10-26 01:06 | Emergency (ER) | payer MEDICARE, OTHER ==
[~2020-10-26] VITALS: Ht 175.3 cm; Wt 74.8 kg
== END 2020-10-26 01:33 | disposition home or self-care (01) ==
LOC: ER 01:06
DX: Z76.0 Encounter for issue of repeat prescription (principal); F17.210 Nicotine dependence, cigarettes, uncomplicated; Z88.5 Allergy status to narcotic agent; Z79.899 Other long term (current) drug therapy
CPT/HCPCS: 99281

== ENCOUNTER 2020-11-09 18:38 | Inpatient (IN) | payer MEDICARE, OTHER ==
[~2020-11-09] VITALS: Ht 175.3 cm; Wt 70.1 kg
[2020-11-09 22:17] LABS: BASOPHILS ABSOLUTE AUTO 0.02 K/mm3 (0.00-0.23); BASOPHILS PERCENT AUTO 0 % (0-2); EOSINOPHILS ABSOLUTE AUTO 0.07 K/mm3 (0.00-0.68); EOSINOPHILS PERCENT AUTO 1 % (0-6); Hematocrit 33.8 % (37.0-53.0); Hemoglobin 11.5 g/dL (13.5-17.5); IMMATURE GRAN ABSOLUTE AUTO 0.02 K/mm3 (0.00-0.10); IMMATURE GRAN PERCENT AUTO 0 % (0-1); LYMPHOCYTES ABSOLUTE AUTO 1.21 K/mm3 (0.84-5.20); LYMPHOCYTES PERCENT AUTO 15 % (21-46); MONOCYTES ABSOLUTE AUTO 0.79 K/mm3 (0.16-1.47); MONOCYTES PERCENT AUTO 10 % (4-13); Mean Corpuscular HGB 29.5 pg (26.0-34.0); Mean Corpuscular Volume 87 fL (80-100); Mean Platelet Volume 7.7 fL (9.1-12.4); NEUTROPHILS ABSOLUTE AUTO 6.22 K/mm3 (1.96-9.15); NEUTROPHILS PERCENT AUTO 75 % (41-73); Platelet Count 377 K/mm3 (150-400); RDW Standard Deviation 40.7 fL (35.1-46.3); White Blood Cell Count 8.33 K/mm3 (4.00-11.30)
[2020-11-09 22:33] LABS: Alanine Aminotransfer (ALT/SGP 22 U/L (12-78); Albumin, Blood 2.8 g/dL (3.4-5.0); Albumin/Globulin Ratio 0.7 (0.8-1.8); Alk Phos 154 U/L (50-136); Anion Gap 8 mmol/L (6-16); Aspartate Aminotrans (AST/SGOT 30 U/L (12-37); Bilirubin, Total 0.4 mg/dL (0.1-1.0); Blood Urea Nitrogen 6 mg/dL (8-24); Bun/Creatinine Ratio 11.8 (12.0-20.0); CO2, Blood 28 mmol/L (21-32); Calcium, Blood 8.6 mg/dL (8.5-10.1); Chloride, Blood 88 mmol/L (98-108); Creatinine, Blood 0.51 mg/dL (0.60-1.20); Globulin, Blood 3.9 g/dL (2.2-4.0); Glomerular Filtration Rate >60 (60-); Glucose, Blood 95 mg/dL (70-99); Sodium, Blood 124 mmol/L (136-145); Total Protein, Blood 6.7 g/dL (6.4-8.2)
[2020-11-09 22:50] LABS: Influenza A, PCR Negative (NEGATIVE); Influenza B, PCR Negative (NEGATIVE); Resp Syncytial Virus, PCR Negative (NEGATIVE); SARS-Cov-2 (COVID-19) PCR, MMC Negative (NEGATIVE)
[2020-11-09 23:29] LABS: Ethanol (Alcohol), Blood, Med <3 mg/dL
--- NOTE | 2020-11-10 02:14 | NUR ---
RESIDENT ADMITTED FROM ED. RECEIVED REPORT FROM EBENEZER. PT IS A&OX3-4, FORGETFUL. ABLE TO MAKE NEEDS KNOWN. PLEASANT AND COOPERATIVE TO CARE. PT C/O PAIN WHEN MOVING L HIP. HX OF L HIP SURGERY. PT VSS, DENIES SOB, CP, OR N&V. NO S/S OF ETOH WITHDRAWAL NOTED. CALM AND RESTED IN BED AT THIS TIME. BED AT LOWEST POSITION. SEIZURE PADS IN PLACE, BED ALARM ON. CALL LIGHT WITHIN REACH.
[2020-11-10 03:33] LABS: Adenovirus Not Detected (NOT DETECT); Bordetella pertussis Not Detected (NOT DETECT); Chlamydophila pneumoniae Not Detected (NOT DETECT); Coronavirus 229E Not Detected (NOT DETECT); Coronavirus HKU1 Not Detected (NOT DETECT); Coronavirus NL63 Not Detected (NOT DETECT); Coronavirus OC43 Not Detected (NOT DETECT); Human Metapneumovirus Not Detected (NOT DETECT); Human Rhinovirus/Enterovirus Not Detected (NOT DETECT); Influenza A/2009-H1 Not Detected (NOT DETECT); Influenza A/H1 Not Detected (NOT DETECT); Influenza A/H3 Not Detected (NOT DETECT); Influenza B Not Detected (NOT DETECT); Mycoplasma pneumoniae Not Detected (NOT DETECT); Parainfluenza Virus 1 Not Detected (NOT DETECT); Parainfluenza Virus 2 Not Detected (NOT DETECT); Parainfluenza Virus 3 Not Detected (NOT DETECT); Parainfluenza Virus 4 Not Detected (NOT DETECT); Respiratory Syncytial Virus Not Detected (NOT DETECT); SARS-Cov-2 (COVID-19), BioFire Not Detected (NOT DETECT)
[2020-11-10 05:08] LABS: BASOPHILS ABSOLUTE AUTO 0.01 K/mm3 (0.00-0.23); BASOPHILS PERCENT AUTO 0 % (0-2); EOSINOPHILS ABSOLUTE AUTO 0.01 K/mm3 (0.00-0.68); EOSINOPHILS PERCENT AUTO 0 % (0-6); Hematocrit 34.4 % (37.0-53.0); Hemoglobin 11.5 g/dL (13.5-17.5); IMMATURE GRAN ABSOLUTE AUTO 0.01 K/mm3 (0.00-0.10); IMMATURE GRAN PERCENT AUTO 0 % (0-1); LYMPHOCYTES ABSOLUTE AUTO 0.27 K/mm3 (0.84-5.20); LYMPHOCYTES PERCENT AUTO 4 % (21-46); MONOCYTES ABSOLUTE AUTO 0.07 K/mm3 (0.16-1.47); MONOCYTES PERCENT AUTO 1 % (4-13); Mean Corpuscular HGB 29.7 pg (26.0-34.0); Mean Corpuscular HGB Conc 33.4 g/dL (31.5-36.5); Mean Corpuscular Volume 89 fL (80-100); Mean Platelet Volume 8.1 fL (9.1-12.4); NEUTROPHILS ABSOLUTE AUTO 5.98 K/mm3 (1.96-9.15); NEUTROPHILS PERCENT AUTO 94 % (41-73); Platelet Count 402 K/mm3 (150-400); RDW Standard Deviation 42.7 fL (35.1-46.3); Red Blood Cell Count 3.87 M/mm3 (4.30-5.90); White Blood Cell Count 6.35 K/mm3 (4.00-11.30)
[2020-11-10 05:32] LABS: Anion Gap 7 mmol/L (6-16); Blood Urea Nitrogen 6 mg/dL (8-24); Bun/Creatinine Ratio 14.4 (12.0-20.0); CO2, Blood 28 mmol/L (21-32); Calcium, Blood 8.7 mg/dL (8.5-10.1); Chloride, Blood 93 mmol/L (98-108); Creatinine, Blood 0.42 mg/dL (0.60-1.20); Glomerular Filtration Rate >60 (60-); Glucose, Blood 129 mg/dL (70-99); Potassium, Blood 3.7 mmol/L (3.5-5.5); Sodium, Blood 128 mmol/L (136-145)
--- NOTE | 2020-11-10 06:31 | NUR ---
PT CALM AND RESTED IN BED AT THIS TIME. USED THE URINAL INDEPENDENTLY THIS SHIFT. NO S/S OF ETOH WITHDRAWALS NOTED. BED AT LOWEST POSITION, BED ALARM ON. CALL LIGHT WITHIN REACH.
--- NOTE | 2020-11-10 07:29 | NUR ---
WOUND CARE PROVIDED TO PRESSURE ULCER ON R BUTTOCK AREA. AA COVERED WITH MEPILEX. SEE PHOTOS IN CHART.
[2020-11-10] MEDS ORDERED: FOLI1 PO (16:07)
[2020-11-10] MEDS ORDERED: AZIT500 PO (16:07)
[2020-11-10] MEDS ORDERED: B-1100 M1 PO (16:08)
[2020-11-10] MEDS ORDERED: MULVITA PO (16:08)
[2020-11-10] MEDS ORDERED: PRED20 PO (16:08)
--- NOTE | 2020-11-10 18:44 | NUR ---
DISCHARGE PT DISCHARGED TO HOME. THIS RN EXPLAINED DISCHARGE INSTRUCTIONS TO PT AND HE REPORTS HE UNDERSTANDS. IV REMOVED W/O DIFFICULTY. PT TRANSFERRED TO 2ND FLOOR, WAITING FOR TAXI. BELONGINGS WITH PT. MEDICATIONS FAXED TO [facility] PER REQUEST.
== END 2020-11-10 18:30 | disposition home or self-care (01) | DRG 178 ==
LOC: ER 18:38 → MEDS 23:24 → ER 11-10 00:46 → MEDS 11-10 00:46
PROVIDERS: Nurse Practitioner Acute Care; Physician Assistant; ADMIT Family Medicine
DX: J69.0 Pneumonitis due to inhalation of food and vomit (principal); J44.1 Chronic obstructive pulmonary disease with (acute) exacerbation; E87.1 Hypo-osmolality and hyponatremia; J44.0 Chronic obstructive pulmonary disease with (acute) lower respiratory infection; Z20.822 Contact with and (suspected) exposure to COVID-19; Z59.0 Homelessness; F17.210 Nicotine dependence, cigarettes, uncomplicated; F10.10 Alcohol abuse, uncomplicated; Y90.0 Blood alcohol level of less than 20 mg/100 ml
CPT/HCPCS: 0202U; 0241U; 36415; 71045; 71046; 73502; 80048; 80053; 81001; 82140; 83735; 83880; 84145; 84484; 85025; 93005; 93010; 94640; 94664; 94667; 94760; 96365; 96375; 98960; 99283; 99284-25; 99285-25; 99407; A9270; G0480; J0456; J0696; J1650; J2930; J7030; J7050

== ENCOUNTER 2020-11-11 09:39 | Emergency (ER) | payer MEDICARE, OTHER ==
[~2020-11-11] VITALS: Ht 175.3 cm; Wt 72.6 kg
[~2020-11-11 09:39] MED LIST changes: +AZIT500 PO; +B-1100 M1 PO; +FOLI1 PO; +MULVITA PO
[2020-11-11 11:42] LABS: BASOPHILS ABSOLUTE AUTO 0.01 K/mm3 (0.00-0.23); BASOPHILS PERCENT AUTO 0 % (0-2); EOSINOPHILS ABSOLUTE AUTO 0.06 K/mm3 (0.00-0.68); EOSINOPHILS PERCENT AUTO 1 % (0-6); Hematocrit 36.6 % (37.0-53.0); Hemoglobin 12.3 g/dL (13.5-17.5); IMMATURE GRAN ABSOLUTE AUTO 0.04 K/mm3 (0.00-0.10); IMMATURE GRAN PERCENT AUTO 0 % (0-1); LYMPHOCYTES ABSOLUTE AUTO 1.04 K/mm3 (0.84-5.20); LYMPHOCYTES PERCENT AUTO 9 % (21-46); MONOCYTES ABSOLUTE AUTO 0.94 K/mm3 (0.16-1.47); MONOCYTES PERCENT AUTO 8 % (4-13); Mean Corpuscular HGB 29.8 pg (26.0-34.0); Mean Corpuscular HGB Conc 33.6 g/dL (31.5-36.5); Mean Corpuscular Volume 89 fL (80-100); Mean Platelet Volume 8.1 fL (9.1-12.4); NEUTROPHILS ABSOLUTE AUTO 9.66 K/mm3 (1.96-9.15); NEUTROPHILS PERCENT AUTO 82 % (41-73); Platelet Count 436 K/mm3 (150-400); RDW Coefficient Variation 13.2 % (11.7-14.2); RDW Standard Deviation 43.6 fL (35.1-46.3); Red Blood Cell Count 4.13 M/mm3 (4.30-5.90); White Blood Cell Count 11.75 K/mm3 (4.00-11.30)
[2020-11-11 12:05] LABS: Alanine Aminotransfer (ALT/SGP 24 U/L (12-78); Albumin, Blood 3.3 g/dL (3.4-5.0); Albumin/Globulin Ratio 0.7 (0.8-1.8); Alk Phos 126 U/L (50-136); Anion Gap 7 mmol/L (6-16); Aspartate Aminotrans (AST/SGOT 40 U/L (12-37); Bilirubin, Total 0.5 mg/dL (0.1-1.0); Blood Urea Nitrogen 6 mg/dL (8-24); Bun/Creatinine Ratio 13.8 (12.0-20.0); CO2, Blood 32 mmol/L (21-32); Calcium, Blood 9.2 mg/dL (8.5-10.1); Chloride, Blood 92 mmol/L (98-108); Creatinine, Blood 0.44 mg/dL (0.60-1.20); Globulin, Blood 4.9 g/dL (2.2-4.0); Glomerular Filtration Rate >60 (60-); Glucose, Blood 137 mg/dL (70-99); Magnesium, Blood 1.5 mg/dL (1.6-2.4); Sodium, Blood 131 mmol/L (136-145); Total Protein, Blood 8.2 g/dL (6.4-8.2); Troponin I <0.015 ng/mL (0.000-0.040)
== END 2020-11-11 13:05 | disposition home or self-care (01) ==
LOC: ER 09:39
PROVIDERS: Emergency Medicine
DX: R05 Cough (principal); M25.552 Pain in left hip; G89.29 Other chronic pain; R06.00 Dyspnea, unspecified; J44.9 Chronic obstructive pulmonary disease, unspecified; F17.210 Nicotine dependence, cigarettes, uncomplicated; Z79.52 Long term (current) use of systemic steroids; Z88.5 Allergy status to narcotic agent; Z79.899 Other long term (current) drug therapy
CPT/HCPCS: 71045; 73502; 80053; 83735; 83880; 84484; 85025; 93005; 93010; 94640; 99285-25; A9270

== ENCOUNTER 2020-12-02 23:56 | Emergency (ER) | payer MEDICARE, OTHER ==
[~2020-12-02] VITALS: Ht 167.6 cm; Wt 70.3 kg
== END 2020-12-03 00:56 | disposition home or self-care (01) ==
LOC: ER 23:56
DX: M25.552 Pain in left hip (principal); G89.29 Other chronic pain; F17.210 Nicotine dependence, cigarettes, uncomplicated; J44.9 Chronic obstructive pulmonary disease, unspecified; Z79.52 Long term (current) use of systemic steroids; Z79.899 Other long term (current) drug therapy; Z88.5 Allergy status to narcotic agent
CPT/HCPCS: 73502; 96372; 99283; J1885

== ENCOUNTER 2020-12-06 13:51 | Inpatient (IN) | payer MEDICARE, OTHER ==
[~2020-12-06] VITALS: Ht 175.3 cm; Wt 70.1 kg
[2020-12-06 15:22] LABS: BASOPHILS ABSOLUTE AUTO 0.01 K/mm3 (0.00-0.23); BASOPHILS PERCENT AUTO 0 % (0-2); EOSINOPHILS ABSOLUTE AUTO 0.14 K/mm3 (0.00-0.68); EOSINOPHILS PERCENT AUTO 2 % (0-6); Hematocrit 36.3 % (37.0-53.0); Hemoglobin 12.4 g/dL (13.5-17.5); IMMATURE GRAN ABSOLUTE AUTO 0.06 K/mm3 (0.00-0.10); IMMATURE GRAN PERCENT AUTO 1 % (0-1); LYMPHOCYTES ABSOLUTE AUTO 0.63 K/mm3 (0.84-5.20); LYMPHOCYTES PERCENT AUTO 8 % (21-46); MONOCYTES ABSOLUTE AUTO 0.59 K/mm3 (0.16-1.47); MONOCYTES PERCENT AUTO 8 % (4-13); Mean Corpuscular HGB 29.8 pg (26.0-34.0); Mean Corpuscular HGB Conc 34.2 g/dL (31.5-36.5); Mean Corpuscular Volume 87 fL (80-100); Mean Platelet Volume 8.3 fL (9.1-12.4); NEUTROPHILS ABSOLUTE AUTO 6.04 K/mm3 (1.96-9.15); NEUTROPHILS PERCENT AUTO 81 % (41-73); Platelet Count 245 K/mm3 (150-400); RDW Coefficient Variation 13.3 % (11.7-14.2); Red Blood Cell Count 4.16 M/mm3 (4.30-5.90); White Blood Cell Count 7.47 K/mm3 (4.00-11.30)
[2020-12-06 15:52] LABS: Alanine Aminotransfer (ALT/SGP 29 U/L (12-78); Albumin, Blood 2.8 g/dL (3.4-5.0); Albumin/Globulin Ratio 0.8 (0.8-1.8); Alk Phos 132 U/L (50-136); Anion Gap 10 mmol/L (6-16); Aspartate Aminotrans (AST/SGOT 29 U/L (12-37); Bilirubin, Total 0.5 mg/dL (0.1-1.0); Blood Urea Nitrogen 23 mg/dL (8-24); Bun/Creatinine Ratio 30.1 (12.0-20.0); CO2, Blood 25 mmol/L (21-32); Calcium, Blood 8.2 mg/dL (8.5-10.1); Chloride, Blood 82 mmol/L (98-108); Creatinine, Blood 0.76 mg/dL (0.60-1.20); Globulin, Blood 3.6 g/dL (2.2-4.0); Glomerular Filtration Rate >60 (60-); Glucose, Blood 61 mg/dL (70-99); Potassium, Blood 4.2 mmol/L (3.5-5.5); Sodium, Blood 117 mmol/L (136-145); Total Protein, Blood 6.4 g/dL (6.4-8.2)
[2020-12-06 16:32] LABS: Source, Urine Clean Catch
[2020-12-06 16:39] LABS: Blood, Urine Neg (Neg); Glucose Qualitative, Urine Neg (Neg); Ketones, Urine 1+ (Neg); Leukocyte Esterase, Urine 1+ (Neg); Nitrite, Urine Neg (Neg); Protein, Urine 1+ (Neg); Urobilinogen, Urine 2+ (Normal)
[2020-12-06 17:27] LABS: Bilirubin, Urine 1+ (Neg)
[2020-12-06 17:28] LABS: Appearance, Urine Hazy (Clear); Color, Urine Yellow (P-Yellow)
[2020-12-06 17:29] LABS: Bacteria Not Seen /hpf; Red Blood Cells, Urine Not Seen /hpf (0-2); Squamous Epithelial Cells Not Seen /hpf (Few); White Blood Cells, Urine 0-2 /hpf (0-5)
[2020-12-06 17:41] LABS: U Amphetamine Screen DETECTED; U Benzodiazapine Screen DETECTED; U Methamphetamine Screen DETECTED
[2020-12-06 17:42] LABS: U Barbituate Screen Not Detected; U Buprenorphine Screen Not Detected; U Cannabinoids Screen DETECTED; U Cocaine Screen Not Detected; U Methadone Screen Not Detected; U Opiates Screen DETECTED; U Oxycodone Screen Not Detected; U Phencyclidine Screen Not Detected; U Propoxyphene Screen Not Detected
[2020-12-06 19:22] LABS: Anion Gap 9 mmol/L (6-16); Blood Urea Nitrogen 30 mg/dL (8-24); Bun/Creatinine Ratio 45.4 (12.0-20.0); CO2, Blood 28 mmol/L (21-32); Calcium, Blood 8.3 mg/dL (8.5-10.1); Chloride, Blood 83 mmol/L (98-108); Creatinine, Blood 0.66 mg/dL (0.60-1.20); Glomerular Filtration Rate >60 (60-); Glucose, Blood 45 mg/dL (70-99); Potassium, Blood 4.1 mmol/L (3.5-5.5); Sodium, Blood 120 mmol/L (136-145)
[2020-12-07 02:32] LABS: Influenza A, PCR NEGATIVE (NEGATIVE); Influenza B, PCR NEGATIVE (NEGATIVE); Resp Syncytial Virus, PCR NEGATIVE (NEGATIVE); SARS-Cov-2 (COVID-19) PCR, MMC NEGATIVE (NEGATIVE)
[2020-12-07 03:24] LABS: BASOPHILS ABSOLUTE AUTO 0.01 K/mm3 (0.00-0.23); BASOPHILS PERCENT AUTO 0 % (0-2); EOSINOPHILS ABSOLUTE AUTO 0.06 K/mm3 (0.00-0.68); EOSINOPHILS PERCENT AUTO 1 % (0-6); Hematocrit 23.5 % (37.0-53.0); Hemoglobin 8.2 g/dL (13.5-17.5); IMMATURE GRAN ABSOLUTE AUTO 0.02 K/mm3 (0.00-0.10); IMMATURE GRAN PERCENT AUTO 0 % (0-1); LYMPHOCYTES ABSOLUTE AUTO 0.39 K/mm3 (0.84-5.20); LYMPHOCYTES PERCENT AUTO 9 % (21-46); MONOCYTES PERCENT AUTO 4 % (4-13); Mean Corpuscular HGB 29.9 pg (26.0-34.0); Mean Corpuscular HGB Conc 34.9 g/dL (31.5-36.5); Mean Corpuscular Volume 86 fL (80-100); Mean Platelet Volume 8.3 fL (9.1-12.4); NEUTROPHILS ABSOLUTE AUTO 3.92 K/mm3 (1.96-9.15); NEUTROPHILS PERCENT AUTO 85 % (41-73); Platelet Count 204 K/mm3 (150-400); RDW Coefficient Variation 13.1 % (11.7-14.2); RDW Standard Deviation 41.1 fL (35.1-46.3); Red Blood Cell Count 2.74 M/mm3 (4.30-5.90)
[2020-12-07 03:40] LABS: International Normalized Ratio 1.08; Prothrombin Time Results 11.5 Sec (9.7-11.5)
--- NOTE | 2020-12-07 03:45 | NUR ---
ASSUMPTION OF CARE PT TX FROM ER TO ICU 6. ADMITTED FOR HYPONATREMIA, HYPOTENSION, AND HYPOGLYCEMIA. SLIDER SHEET TRANSFER TO ICU BED. PT ALERT AND ORIENTED TO NORMAL MENTATION. D10 INFUSING @ 250ML/HR, NEOSYNEPHRINE @ 10MCG/MIN c MAP >65, & NS @ 100ML/HR UPON ARRIVAL. SHORTLY AFTER ARRIVAL PT BEGAN INSISTENLY COUGHING UP COPIOUS AMOUNTS OF DARK/BLACK SPUTUM. A FEW MINUTES LATER PT BEGAN C/O NAUSEA, HE WAS MEDICATED WITH PRN ZOFRAN. HE THEN PROCEEDED TO VOMIT UP A LARGE AMOUNT OF DARK TARRY LIQUID. DR KOROMA CONSULTED, SEE ORDERS FOR NEW MEDICATIONS/ RATE CHANGE. PT PLACED ON 2LPM O2 VIA NC DUE TO DECREASED RESPIRATIONS WHILE SLEEPING. PT C/O SEVERE CHRONIC HIP PAIN, MEDICATED c PRN FENTANYL. WILL CONTINUE TO MONITOR CBG AND BP, TITRATING ZIYAD TO EFFECT.
[2020-12-07 03:46] LABS: Anion Gap 6 mmol/L (6-16); Blood Urea Nitrogen 46 mg/dL (8-24); Bun/Creatinine Ratio 74.6 (12.0-20.0); CO2, Blood 28 mmol/L (21-32); Calcium, Blood 7.3 mg/dL (8.5-10.1); Chloride, Blood 84 mmol/L (98-108); Creatinine, Blood 0.62 mg/dL (0.60-1.20); Glomerular Filtration Rate >60 (60-); Glucose, Blood 96 mg/dL (70-99); Potassium, Blood 4.6 mmol/L (3.5-5.5); Sodium, Blood 118 mmol/L (136-145)
--- NOTE | 2020-12-07 08:15 | NUR ---
ASSUMED CARE / DR REID: REPORT RECEIVED FROM MAIKEL Ellison RN. ASSUMED CARE OF THIS PT AT APPROX 0700. ON ASSESSMENT, THE PT IS RESTING INTERMITTENTLY, A&O UPON WAKING. HE DENIES PAIN AT REST BUT DOES SAY HE HAS PAIN TO HIS LEFT HIP W/ REPOSITIONING OR ADLs. LS DIM T/O, PT HAS A MOIST COUGH BUT DENIES SPUTUM PRODUCTION. PT ON 2L NC W/ O2 SATS > 92%. MONITOR SHOWS ST W/ HR 100s, HYPOTENSIVE ON NEOSYNEPHRINE DRIP - SEE FLOWSHEET FOR TITRATION. BT HYPERACTIVE x4, PT DENIES NAUSEA CURRENTLY. PER REPORT, PT HAD LARGE BLACK TARRY EMESIS LAST NIGHT. LARGE BLACK UNFORMED BM NOTED THIS AM. CONDOM CATH IN PLACE, PATENT/ DRAINING DARK YELLOW URINE. SKIN CONDITION OVERALL INTACT. DR REID AT BEDSIDE TO EVAL PT. ORDERS FOR F/U LABS PLACED, LOVENOX D/C'd & SCD's ORDERED. NO OTHER CHANGES AT THIS TIME. PROVIDER WOULD LIKE THE PT TO EAT IF TOLERATED. WILL CONTINUE TO MONITOR & UPDATE NEEDED.
--- NOTE | 2020-12-07 08:25 | NUR ---
DR SANTOYO: PROVIDER AT BEDSIDE TO EVAL PT. DISCUSSED ORDERS PLACED BY RESIDENT DR REID & SOME ADJUSTMENTS HAVE BEEN MADE. H&H & BMP ORDERED FOR 0900 & REPEATS LABS SCHEDULED FOR 1300. RATE OF D10 INFUSION DECREASED TO 100 ML/HR & RATE OF NS INCREASED TO 150 ML/HR. OKAY TO ORDER ANOTHER LITER OF D10 IF PT's BLOOD SUGAR DROPS AFTER THIS BAG OF D10 COMPLETED.
[2020-12-07 09:07] LABS: Hematocrit 21.4 % (37.0-53.0); Hemoglobin 7.4 g/dL (13.5-17.5)
[2020-12-07 09:24] LABS: Blood Urea Nitrogen 46 mg/dL (8-24); Bun/Creatinine Ratio 79.9 (12.0-20.0); CO2, Blood 25 mmol/L (21-32); Calcium, Blood 7.1 mg/dL (8.5-10.1); Chloride, Blood 86 mmol/L (98-108); Creatinine, Blood 0.58 mg/dL (0.60-1.20); Glomerular Filtration Rate >60 (60-); Glucose, Blood 133 mg/dL (70-99); Potassium, Blood 4.7 mmol/L (3.5-5.5)
[2020-12-07 09:25] LABS: Anion Gap 6 mmol/L (6-16); Sodium, Blood 117 mmol/L (136-145)
--- NOTE | 2020-12-07 10:11 | NUR ---
DR SANTOYO: CALL TO PROVIDER REGARDING PT's 0900 LAB RESULTS. CRITICAL LOW SODIUM OF 117 & HBG 7.4 REPORTED. CONTINUE CURRENT IVFs NOTED PRIOR. TRANFUSE 1 UNIT PRBCs.
[2020-12-07 13:04] LABS: Hematocrit 21.5 % (37.0-53.0); Hemoglobin 7.5 g/dL (13.5-17.5)
[2020-12-07 13:27] LABS: Blood Urea Nitrogen 41 mg/dL (8-24); Bun/Creatinine Ratio 64.8 (12.0-20.0); CO2, Blood 26 mmol/L (21-32); Calcium, Blood 6.9 mg/dL (8.5-10.1); Chloride, Blood 88 mmol/L (98-108); Creatinine, Blood 0.63 mg/dL (0.60-1.20); Glomerular Filtration Rate >60 (60-); Glucose, Blood 90 mg/dL (70-99); Potassium, Blood 5.2 mmol/L (3.5-5.5)
[2020-12-07 13:28] LABS: Anion Gap 5 mmol/L (6-16); Sodium, Blood 119 mmol/L (136-145)
[2020-12-07 17:13] LABS: BASOPHILS ABSOLUTE AUTO 0.01 K/mm3 (0.00-0.23); BASOPHILS PERCENT AUTO 0 % (0-2); EOSINOPHILS ABSOLUTE AUTO 0.03 K/mm3 (0.00-0.68); EOSINOPHILS PERCENT AUTO 1 % (0-6); Hematocrit 22.3 % (37.0-53.0); Hemoglobin 7.8 g/dL (13.5-17.5); IMMATURE GRAN ABSOLUTE AUTO 0.01 K/mm3 (0.00-0.10); IMMATURE GRAN PERCENT AUTO 0 % (0-1); LYMPHOCYTES ABSOLUTE AUTO 0.57 K/mm3 (0.84-5.20); LYMPHOCYTES PERCENT AUTO 11 % (21-46); MONOCYTES ABSOLUTE AUTO 0.62 K/mm3 (0.16-1.47); MONOCYTES PERCENT AUTO 12 % (4-13); Mean Corpuscular HGB 30.2 pg (26.0-34.0); Mean Corpuscular Volume 86 fL (80-100); Mean Platelet Volume 8.4 fL (9.1-12.4); NEUTROPHILS ABSOLUTE AUTO 3.78 K/mm3 (1.96-9.15); NEUTROPHILS PERCENT AUTO 75 % (41-73); Platelet Count 185 K/mm3 (150-400); RDW Standard Deviation 41.2 fL (35.1-46.3); Red Blood Cell Count 2.58 M/mm3 (4.30-5.90); White Blood Cell Count 5.02 K/mm3 (4.00-11.30)
[2020-12-07 17:36] LABS: Anion Gap 4 mmol/L (6-16); Blood Urea Nitrogen 37 mg/dL (8-24); Bun/Creatinine Ratio 64.3 (12.0-20.0); CO2, Blood 27 mmol/L (21-32); Calcium, Blood 7.2 mg/dL (8.5-10.1); Chloride, Blood 91 mmol/L (98-108); Creatinine, Blood 0.58 mg/dL (0.60-1.20); Glomerular Filtration Rate >60 (60-); Glucose, Blood 109 mg/dL (70-99); Potassium, Blood 4.7 mmol/L (3.5-5.5); Sodium, Blood 122 mmol/L (136-145)
--- NOTE | 2020-12-07 18:58 | NUR ---
SHIFT SUMMARY: NO ACUTE CHANGES SINCE PRIOR UPDATE. PT REMAINS A&O, OVERALL DENIES PAIN BUT STS HIP PAIN W/ MOVEMENT & ADLs. LS DIM T/O, PT ON 2L NC W/ O2 SATS > 92%. MONITOR SHOWS SR W/ HR 90s, HYPOTENSION W/ NEOSYNEPHRINE INFUSING - TITRATION IN FLOWSHEET. PT HAS TOLERATED SMALL AMNTS OF PO INTAKE WELL THIS AFTERNOON BUT DOES CONTINUE TO HAVE BLACK UNFORMED BOWEL MOVEMENTS. CURRENTLY NPO FOR PENDING PROCEDURE W/ DR VASQUEZ. CONDOM CATH REMAINS IN PLACE & IS PATENT/DRAINING DARK YELLOW URINE. SKIN CONDITION OVERALL UNCHANGED. Q2H REPOSITIONING TO MAINTAIN SKIN INTEGRITY. REDNESS TO COCCYX/BUTTOCKS REMAINS BLANCHABLE BUT PT DOES NOT TOLERATE REPOSITIONING WELL R/T HIP PAIN & OFTEN REMOVES PILLOWS SHORTLY AFTER STAFF PLACES THEM. WILL CONTINUE TO MONITOR & REPORT OFF TO ONCOMING RN.
--- NOTE | 2020-12-07 19:00 | NUR ---
ASSUMED CARE ASSUMED CARE OF PATIENT. AWAKE AND ALERT. NO C/O PAIN OR DISCOMFORT AT THIS TIME. CLIP LOADING MACHINE ADJUSTER STAFF IN ROOM TO TAKE PT FOR PROCEDURE. PROTONIX CONTINUES AT 8MG/HR AND SANDOSTATIN AT 50MCG/HR PER ORDER. NS INFUSING AT 125CC/HR. NEOSYNEPHRINE AT 40MCG/MIN- BP STABLE. O2 2L NC. RESPIRATIONS EVEN AND UNLABORED. WILL ASSESS PT ONCE BACK FROM PROCEDURE.
--- NOTE | 2020-12-07 20:00 | NUR ---
RETURN FROM RADIOLOGY TECHNICIAN PT RETURNED FROM RADIOLOGY TECHNICIAN. NO INTERVENTION PERFORMED PER RADIOLOGY TECHNICIAN STAFF. RIGHT GROIN WITH ANGIOSEAL AND DRSG C/D/I. NO BLEEDING, NO HEMATOMA. SITE IS SOFT. PT INSTRUCTED ON NEED TO KEEP LEG STRAIGHT AND HEAD FLAT FOR NOW. DENIES C/O PAIN OR DISCOMFORT AT THIS TIME. SBP 153- NEOSYNEPHRINE GTT OFF AT THIS TIME. NS, PROTONIX, AND SANDOSTATIN INFUSING PER ORDER. CONDOM CATH REMAINS IN PLACE. BRODERICK PICC NOTED. SEE SHIFT ASSESSMENT FOR FULL ASSESSMENT.
[2020-12-07 22:56] LABS: BASOPHILS PERCENT AUTO 0 % (0-2); EOSINOPHILS ABSOLUTE AUTO 0.06 K/mm3 (0.00-0.68); EOSINOPHILS PERCENT AUTO 1 % (0-6); Hematocrit 21.3 % (37.0-53.0); Hemoglobin 7.5 g/dL (13.5-17.5); IMMATURE GRAN ABSOLUTE AUTO 0.01 K/mm3 (0.00-0.10); IMMATURE GRAN PERCENT AUTO 0 % (0-1); LYMPHOCYTES ABSOLUTE AUTO 0.47 K/mm3 (0.84-5.20); LYMPHOCYTES PERCENT AUTO 11 % (21-46); MONOCYTES ABSOLUTE AUTO 0.52 K/mm3 (0.16-1.47); MONOCYTES PERCENT AUTO 12 % (4-13); Mean Corpuscular HGB 30.4 pg (26.0-34.0); Mean Corpuscular HGB Conc 35.2 g/dL (31.5-36.5); Mean Corpuscular Volume 86 fL (80-100); Mean Platelet Volume 8.2 fL (9.1-12.4); NEUTROPHILS ABSOLUTE AUTO 3.17 K/mm3 (1.96-9.15); NEUTROPHILS PERCENT AUTO 75 % (41-73); Platelet Count 158 K/mm3 (150-400); RDW Coefficient Variation 13.1 % (11.7-14.2); RDW Standard Deviation 41.3 fL (35.1-46.3); Red Blood Cell Count 2.47 M/mm3 (4.30-5.90); White Blood Cell Count 4.23 K/mm3 (4.00-11.30)
[2020-12-07 23:17] LABS: Anion Gap 4 mmol/L (6-16); Blood Urea Nitrogen 30 mg/dL (8-24); Bun/Creatinine Ratio 55.6 (12.0-20.0); CO2, Blood 28 mmol/L (21-32); Calcium, Blood 7.1 mg/dL (8.5-10.1); Chloride, Blood 92 mmol/L (98-108); Creatinine, Blood 0.54 mg/dL (0.60-1.20); Glomerular Filtration Rate >60 (60-); Glucose, Blood 129 mg/dL (70-99); Potassium, Blood 4.4 mmol/L (3.5-5.5); Sodium, Blood 124 mmol/L (136-145)
--- NOTE | 2020-12-07 23:28 | NUR ---
HgB DR. QUINONEZ NOTIFIED OF HgB OF 7.4. WILL RECHECK IN FOUR HOURS AND TRANSFUSE IF NEEDED.
[2020-12-08 04:15] LABS: Hematocrit 19.8 % (37.0-53.0)
--- NOTE | 2020-12-08 04:54 | NUR ---
HgB DR. QUINONEZ NOTIFIED OF HgB 7.0. WILL MONITOR AND REPEAT H+H IN FOUR HOURS.
[2020-12-08 05:08] LABS: Anion Gap 3 mmol/L (6-16); Blood Urea Nitrogen 24 mg/dL (8-24); Bun/Creatinine Ratio 40.8 (12.0-20.0); CO2, Blood 28 mmol/L (21-32); Calcium, Blood 7.1 mg/dL (8.5-10.1); Chloride, Blood 95 mmol/L (98-108); Creatinine, Blood 0.59 mg/dL (0.60-1.20); Glomerular Filtration Rate >60 (60-); Glucose, Blood 152 mg/dL (70-99); Potassium, Blood 4.2 mmol/L (3.5-5.5); Sodium, Blood 126 mmol/L (136-145)
--- NOTE | 2020-12-08 06:11 | NUR ---
SHIFT SUMMARY PT SLEPT INTERMITTENTLY DURING NOC. ROUSES EASILY TO VERBAL STIMULI. ORIENTED TO ALL EXCEPT TIME OF DAY. COOPERATIVE WITH CARE. OCCASIONALLY IRRITABLE WITH STAFF. CONTINUES WITH C/O LEFT HIP PAIN WITH MOVEMENT. MEDICATED WITH FENTANYL 50MCG IV X 1 DOSE DURING NOC WITH GOOD RELIEF OF PAIN. RIGHT GROIN SITE SOFT. NO HEMATOMA, NO BLEEDING, NO BRUISING NOTED. BILATERAL FEET ARE WARM TO TOUCH AND WITH CMS INTACT. BRODERICK PICC PATENT, ALTHOUGH ALL PORTS ARE SLUGGISH WITH FLUSHING. NS INFUSING AT 125CC/HR PER ORDER. SANDOSTATIN AND PROTONIX INFUSING PER ORDER. PT INCONTINENT OF LARGE LOOSE BLACK TARRY STOOL X 1. SLIGHT NAUSEA AT BEGINNING OF SHIFT, BUT NONE SINCE. PT TOLERATED SEVERAL SMALL SNACKS. CONDOM CATH REMAINS IN PLACE. DECREASE IN HEMOGLOBIN DISCUSSED WITH MD TWICE DURING SHIFT- NO ORDERS TO TRANSFUSE YET. NEXT H+H ORDERED FOR 0700. VSS. NEOSYNEPHRINE HAS BEEN OFF SINCE 1999. WILL REPORT TO ONCOMING RN WHEN AVAILABLE.
--- NOTE | 2020-12-08 08:00 | NUR ---
PT IS ALERT AND ORIENTED TO PERSON AND PLACE-UNAWARE OF TIME. PT RESPONDING TO QUESTIONS APPROPRIATELY. PT REPORTS 9/10 LEFT HIP PAIN. MED WITH ULTRAM WITH ROUTINE AM MEDS. PT IS AFEBRILE-ECG SHOWS SR. SBP 90-110'S. LUNGS SLIGHTLY COARSE AND DIMINISHED IN THE BASES. OCCASIONAL MOIST, NONPRODUCTIVE COUGH. MAINTAINS SATS> 90% ON 2 LITERS NASAL CANULA. PT MED WITH ZOFRAN PRIOR TO TAKING PO MEDS THIS AM. HE IS SWALLOWING WITHOUT DIFFICULTY AND GIVEN REGULAR DIET. HE WAS ABLE TO FEED HIMSELF. SMALL AMOUNT OF BLACK, TARRY STOOL NOTED. COCCYX AND BUTTOCKS ARE DISCOLORED-PURPLISH AND SLIGHTLY RED. PT IS UNABLE TO TURN FROM SIDE TO SIDE DUE TO LEFT HIP PAIN. NO NOTED BREAKDOWN-PLACED FOAM DRESSING PREVENTATIVE MEASURE. LEFT HIP WITH REDNESS NOTED TO OLD WOUND. SKIN IN GENERAL IS PALE, DRY, AND FLAKY. RIGHT FEMORAL SITE-WITH ANGIOSEAL IS CLEAR. NO NOTED BRUISING OR HEMATOMA. H&H AND BMP DRAWN AND SENT TO LAB.
[2020-12-08 08:54] LABS: Blood Urea Nitrogen 15 mg/dL (8-24); Bun/Creatinine Ratio 36.4 (12.0-20.0); CO2, Blood 22 mmol/L (21-32); Chloride, Blood 109 mmol/L (98-108); Creatinine, Blood 0.41 mg/dL (0.60-1.20); Glomerular Filtration Rate >60 (60-); Glucose, Blood 99 mg/dL (70-99); Potassium, Blood 3.2 mmol/L (3.5-5.5)
[2020-12-08 08:56] LABS: Hematocrit 15.8 % (37.0-53.0); Hemoglobin 5.3 g/dL (13.5-17.5)
[2020-12-08 09:25] LABS: Anion Gap 5 mmol/L (6-16); Calcium, Blood 5.5 mg/dL (8.5-10.1); Sodium, Blood 136 mmol/L (136-145)
--- NOTE | 2020-12-08 09:44 | NUR ---
PT RESTING QUIETLY WHEN NOT DISTURBED. AWAKENED WHEN RN IN ROOM. PT COUGHING UP A LARGE AMOUNT OF THICK, DAVIS SECRETIONS. H&H RESULTS REVIEWED WITH DR. REID- WILL TRANSFUSE 2 UNITS PRBC'S WHEN AVAILABLE.
--- NOTE | 2020-12-08 11:54 | NUR ---
PT REPORTS 9/10 LEFT HIP PAIN-MED WITH FENTANYL 50 MCG IVP X1. DENTURES PLACED IN EFFERDENT(UPPER) MAUREEN CARE AND PARTIAL LINEN CHANGE COMPLETED. PT TURNED TO RIGHT SIDE-EXTREMITIES ELEVATED ON PILLOWS. PT DENIES SOB. LUNGS REMAIN COARSE TO UPPER LOBES AND DIMINISHED IN THE BASES. MAINTAINS SATS<90% ON 2 LITERS NASAL CANULA.PT NPO. ANTICIPATE TRANSFER TO [facility] FOR GI CONSULT. 1ST OF 2 UNITS OF PRBC'S INFUSING. KCL REPLETION ALSO INFUSING-SEE EMAR.
--- NOTE | 2020-12-08 12:06 | NUR ---
ATTEMPTED TO CONTACT PT SISTER CORRY PER PT REQUEST-MESSAGE LEFT.
--- NOTE | 2020-12-08 13:10 | NUR ---
PT TRANSFERED TO [facility] ROOM 4214 VIA [facility]. REPORT GIVEN TO SHAYY DAVE-MILO AND SHAYY SCHRADER @ [facility]. PT BELONGINGS AND RECORDS SENT. PT SISTER CORRY NOTIFIED OF PT TRANSFER.
== END 2020-12-08 13:00 | disposition short-term general hospital (02) | DRG 640 ==
LOC: ER 13:51 → ERHOLD 13:52 → ICUE 23:30
PROVIDERS: Emergency Medicine; Family Medicine; Internal Medicine; Nurse Practitioner Acute Care; ADMIT Hospitalist
PROC: B415YZZ Fluoroscopy of Inferior Mesenteric Artery using Other Contrast (ICD-10-PCS; principal; 2020-12-07)
PROC: B414YZZ Fluoroscopy of Superior Mesenteric Artery using Other Contrast (ICD-10-PCS; 2020-12-07)
PROC: 30233N1 Transfusion of Nonautologous Red Blood Cells into Peripheral Vein, Percutaneous Approach (ICD-10-PCS; 2020-12-07)
DX: E87.1 Hypo-osmolality and hyponatremia (principal); R57.8 Other shock; K92.1 Melena; F10.10 Alcohol abuse, uncomplicated; D64.9 Anemia, unspecified; J44.9 Chronic obstructive pulmonary disease, unspecified; Z59.0 Homelessness; E16.2 Hypoglycemia, unspecified; F17.210 Nicotine dependence, cigarettes, uncomplicated
CPT/HCPCS: 0241U; 36245; 36415; 36430; 36569; 71045; 75726; 80048; 80053; 81001; 82330; 82947; 83605; 83735; 84300; 85014; 85018; 85025; 85610; 85730; 86850; 86900; 86901; 86923; 87040; 87086; 94640; 94760; 96361; 96365; 96366; 96367; 96375; 96376; 99152; 99153; 99283; 99285-25; A9270; C1751; C1760; C1769; C1887; C1894; C9113; G0378; J0610; J0696; J1644; J1885; J2250; J2354; J2370; J2405; J3010; J3475; J3480; J7030; J7040; J7050; P9016; Q9967